=== PATIENT | female | born 1930 | race Caucasian/White ===

== ENCOUNTER → 2016-12-21 | Outpatient (CLI) | payer MEDICARE, OTHER ==
[~2016-12-21] MED LIST: ASPI325T5 PO; CENTTAB PO; LISIPOW PO; METO12TA PO; OSCAL PO; SIMV40TA2 PO; TRIPOIN TOP; ULTR50TA PO; VITAMIN D PO; [UNRECOGNIZED DRUG - REMARK]
== END ==
LOC: M LRY 10:47
PROVIDERS: ATTEND Physician Assistant
DX: I50.32 Chronic diastolic (congestive) heart failure (principal); E78.00 Pure hypercholesterolemia, unspecified

== ENCOUNTER → 2018-01-27 | Outpatient (REF) | payer MEDICARE, OTHER ==
[2018-01-27 17:12] LABS: HEMATOCRIT 44.6 % (36.0-47.0); HEMOGLOBIN 14.6 g/dl (12.0-15.5); MEAN CORPUSCULAR HEMOGLOBIN 30.4 pg (27.0-33.0); MEAN CORPUSCULAR HGB CONC 32.7 g/dl (32.0-36.5); MEAN CORPUSCULAR VOLUME 92.7 fl (80.0-96.0); PLATELET COUNT, AUTOMATED 227 10^3/uL (150-450); RED BLOOD COUNT 4.81 10^6/uL (4.00-5.40); RED CELL DISTRIBUTION WIDTH 13.5 % (11.5-14.5); WHITE BLOOD COUNT 6.9 10^3/uL (4.0-10.0)
[2018-01-27 17:31] LABS: ALBUMIN/GLOBULIN RATIO 1.05 (1.00-1.93); ALKALINE PHOSPHATASE 88 U/L (45-117); ALT/SGPT 23 U/L (12-78); ANION GAP 8 MEQ/L (8-16); AST/SGOT 22 U/L (7-37); BILIRUBIN,TOTAL 0.5 MG/DL (0.2-1.0); BLOOD UREA NITROGEN 10 MG/DL (7-18); CALCIUM LEVEL 10.5 MG/DL (8.8-10.2); CARBON DIOXIDE LEVEL 29 MEQ/L (21-32); CHLORIDE LEVEL 106 MEQ/L (98-107); CREATININE FOR GFR 0.92 MG/DL (0.55-1.30); GLOMERULAR FILTRATION RATE > 60.0 (>32); GLUCOSE, FASTING 106 MG/DL (70-100); POTASSIUM SERUM 4.3 MEQ/L (3.5-5.1); SODIUM LEVEL 143 MEQ/L (136-145); TOTAL PROTEIN 7.8 GM/DL (6.4-8.2)
== END ==
LOC: M SFHCLERA 10:47
DX: I10 Essential (primary) hypertension (principal)
CPT/HCPCS: 80053

== ENCOUNTER → 2018-07-11 | Outpatient (REF) | payer MEDICARE, OTHER ==
[2018-07-11 11:33] LABS: ALKALINE PHOSPHATASE 84 U/L (45-117); ALT/SGPT 21 U/L (12-78); ANION GAP 7 MEQ/L (8-16); AST/SGOT 18 U/L (7-37); BILIRUBIN,TOTAL 0.5 MG/DL (0.2-1.0); BLOOD UREA NITROGEN 14 MG/DL (7-18); CALCIUM LEVEL 9.5 MG/DL (8.8-10.2); CARBON DIOXIDE LEVEL 29 MEQ/L (21-32); CHLORIDE LEVEL 105 MEQ/L (98-107); CHOLESTEROL LEVEL 155 MG/DL (<200); CREATININE FOR GFR 0.89 MG/DL (0.55-1.30); GLOMERULAR FILTRATION RATE > 60.0 (>32); GLUCOSE, FASTING 104 MG/DL (70-100); HDL CHOLESTEROL 74 MG/DL (>40); POTASSIUM SERUM 3.9 MEQ/L (3.5-5.1); SODIUM LEVEL 141 MEQ/L (136-145); TRIGLYCERIDES LEVEL 92 MG/DL (<150)
[2018-07-11 11:34] LABS: ALBUMIN 3.7 GM/DL (3.2-5.2); ALBUMIN/GLOBULIN RATIO 1.09 (1.00-1.93); CHOLESTEROL RISK RATIO 2.094 (<5); LDL CHOLESTEROL 63 MG/DL (<100); NON-HDL-C 81 MG/DL; TOTAL PROTEIN 7.1 GM/DL (6.4-8.2)
== END ==
LOC: M SFHCLERA 08:46
DX: E78.2 Mixed hyperlipidemia (principal); E55.9 Vitamin D deficiency, unspecified
CPT/HCPCS: 80053

== ENCOUNTER → 2019-07-06 | Outpatient (REF) | payer MEDICARE, OTHER ==
[~2019-07-06] MED LIST changes: +METO-346 PO; -METO12TA PO
[2019-07-06 11:43] LABS: BASO # 0.1 10^3/uL (0.0-0.2); BASO % 0.7 % (0.0-1.0); EOS # 0.1 10^3/uL (0.0-0.5); EOS % 1.8 % (0.0-3.0); HEMATOCRIT 41.8 % (36.0-47.0); HEMOGLOBIN 13.7 g/dl (12.0-15.5); LYMPH # 1.5 10^3/uL (1.5-5.0); LYMPH % 21.9 % (24.0-44.0); MEAN CORPUSCULAR HEMOGLOBIN 30.8 pg (27.0-33.0); MEAN CORPUSCULAR HGB CONC 32.8 g/dl (32.0-36.5); MEAN CORPUSCULAR VOLUME 93.9 fl (80.0-96.0); MONO # 0.5 10^3/uL (0.0-0.8); MONO % 6.4 % (0.0-5.0); NEUTROPHILS # 4.8 10^3/uL (1.5-8.5); NEUTROPHILS % 68.5 % (36.0-66.0); PLATELET COUNT, AUTOMATED 214 10^3/uL (150-450); RED BLOOD COUNT 4.45 10^6/uL (4.00-5.40)
[2019-07-06 11:55] LABS: ALBUMIN 3.7 GM/DL (3.2-5.2); ALT/SGPT 21 U/L (12-78); BILIRUBIN,TOTAL 0.5 MG/DL (0.2-1.0); BLOOD UREA NITROGEN 14 MG/DL (7-18); CALCIUM LEVEL 9.6 MG/DL (8.8-10.2); CARBON DIOXIDE LEVEL 30 MEQ/L (21-32); CHLORIDE LEVEL 106 MEQ/L (98-107); CHOLESTEROL LEVEL 154 MG/DL (<200); CHOLESTEROL RISK RATIO 2.026 (<5); CREATININE FOR GFR 0.93 MG/DL (0.55-1.30); GLOMERULAR FILTRATION RATE > 60.0 (>32); GLUCOSE, FASTING 102 MG/DL (70-100); HDL CHOLESTEROL 76 MG/DL (>40); LDL CHOLESTEROL 57 MG/DL (<100); NON-HDL-C 78 MG/DL; POTASSIUM SERUM 4.3 MEQ/L (3.5-5.1); SODIUM LEVEL 141 MEQ/L (136-145); TOTAL PROTEIN 7.4 GM/DL (6.4-8.2); TRIGLYCERIDES LEVEL 107 MG/DL (<150)
== END ==
LOC: M SFHCLERA 08:11
PROVIDERS: ATTEND Nurse Practitioner Family
DX: I10 Essential (primary) hypertension (principal); E78.2 Mixed hyperlipidemia; Z12.11 Encounter for screening for malignant neoplasm of colon
CPT/HCPCS: 80053; 80061; 85025; G0328

== ENCOUNTER 2020-11-04 10:14 | Inpatient (IN) | payer MEDICARE, OTHER ==
[~2020-11-04] VITALS: Ht 154.9 cm; Wt 62.1 kg
[2020-11-04] MEDS ORDERED: NS 500 ML IV ONE (10:45)
[2020-11-04] MEDS ORDERED: ONDANSETRON 4MG/2ML VIAL As Ordered ONE (10:56)
[2020-11-04] MEDS ORDERED: ONDANSETRON 4MG/2ML VIAL IV ONE (11:00)
--- NOTE | 2020-11-04 11:02 | REP ---
INDICATION: CVA - Nursing interventions must not delay CT. COMPARISON: No comparison brain imaging.. TECHNIQUE: Helical scanning is acquired. 5 mm axial images were reformatted. Coronal MPR images were generated. FINDINGS: Digital preliminary ultrasound manager radiograph is unremarkable. Bone window settings demonstrate intact bony calvarium. Vascular calcification is noted in the distal vertebral and distal internal carotid arteries bilaterally. The visualized paranasal sinuses are clear. No intraorbital abnormality is seen. On soft tissue window settings, there is moderate generalized volume loss. There are small vessel atherosclerotic changes in the periventricular and subcortical white matter bilaterally. There is evidence of a lacunar infarct in the left frontal lobe periventricular white matter which appears old. There is no evidence of intracranial hemorrhage. No definite acute infarct is seen. No mass, extra-axial fluid collection, or midline shift is observed. IMPRESSION: Generalized volume loss, vascular calcification, small vessel changes. Old appearing lacunar infarct periventricular white matter left frontal lobe. No definite acute infarction. No other evidence of acute intracranial abnormality.. <Electronically signed by Mike Chua > 11/04/20 [id number]
--- NOTE | 2020-11-04 11:18 | REP ---
INDICATION: CVA. COMPARISON: 01/01/2013 TECHNIQUE: AP seated chest FINDINGS: The sternotomy wires and surgical clips noted within the mediastinum. Lung burton are well inflated there is a calcified granuloma in the right lateral base. Underlying interstitial fibrotic changes are seen. Heart size not grossly enlarged. However some venous hypertension is seen without definite interstitial edema. Some blunting left CP angle is present that could be chronic fibrotic change versus a small amount of pleural fluid or atelectasis. No dense consolidation. The aorta is calcified at the arch and tortuous without gross aneurysm. No abnormal widening of the mediastinum. The bones show degenerative changes in the spine and shoulders. No free air under the diaphragm. IMPRESSION: Sternotomy wires and clips from prior CABG. There is pulmonary venous hypertension without pulmonary edema. Some underlying interstitial fibrotic change without acute infiltrate. Blunting left CP angle could be scar, pleural thickening/effusion or atelectasis. <Electronically signed by Tao Day > 11/04/20 [id number]
[2020-11-04 11:50] LABS: BASO % 0.6 % (0.0-1.0); EOS # 0.1 10^3/uL (0.0-0.5); EOS % 0.7 % (0.0-3.0); HEMATOCRIT 36.7 % (36.0-47.0); HEMOGLOBIN 11.9 g/dl (12.0-15.5); LYMPH # 0.8 10^3/uL (1.5-5.0); LYMPH % 10.9 % (24.0-44.0); MEAN CORPUSCULAR HGB CONC 32.4 g/dl (32.0-36.5); MEAN CORPUSCULAR VOLUME 92.4 fl (80.0-96.0); MONO # 0.3 10^3/uL (0.0-0.8); MONO % 4.2 % (2.0-8.0); NEUTROPHILS # 5.8 10^3/uL (1.5-8.5); NEUTROPHILS % 82.9 % (36.0-66.0); PLATELET COUNT, AUTOMATED 195 10^3/uL (150-450); RED BLOOD COUNT 3.97 10^6/uL (4.00-5.40)
[2020-11-04 12:11] LABS: ALBUMIN 3.5 GM/DL (3.2-5.2); BILIRUBIN,DIRECT 0.1 MG/DL (0.0-0.2); BILIRUBIN,TOTAL 0.3 MG/DL (0.2-1.0); TOTAL PROTEIN 6.8 GM/DL (6.4-8.2)
[2020-11-04 12:17] LABS: FREE T4 0.94 NG/DL (0.76-1.46); THYROID STIMULATING HORMONE 1.71 uIU/ML (0.358-3.740)
[2020-11-04] MEDS ORDERED: OS-CTAB PO (12:29)
[2020-11-04] MEDS ORDERED: LISI20TA33 PO (12:29)
[2020-11-04] MEDS ORDERED: VITMTA PO (12:29)
[2020-11-04] MEDS ORDERED: SIMV40TA20 PO (12:29)
[2020-11-04] MEDS ORDERED: METO1TAB87 PO (12:29)
[2020-11-04 13:01] LABS: INR 0.97; PROTHROMBIN TIME 13.1 SECONDS (12.5-14.3)
[2020-11-04 13:02] LABS: PARTIAL THROMBOPLASTIN TIME 27.4 SECONDS (24.2-38.5)
[2020-11-04] MEDS ORDERED: ASPIRIN 325 MG TAB PO ONE (13:15)
[2020-11-04] MEDS ORDERED: ASPI325T49 PO (14:10)
--- OUTSIDE RECORDS SUMMARY | 2020-11-04 15:12 | CCD ---
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 Name Role Phone Vishnu Yeni Unavailable PROBLEMS Type Condition ICD9-CM Code TOE74-SO Code Onset Dates Condition S tatus SNOMED Code Notes Problem Vitamin D deficiency, unspecified E55.9 Active 95818942 Problem History of malignant neoplasm of large intestine Z 85.038 Active 457198706 Problem CAD (coronary artery disease) I25.10 Active 53 755519 Problem Mild depression F32.0 Active 139220409 Problem Essential hypertension I10 Active 56952251 Problem Mixed hyperlipidemia E78.2 Active 516756572 ALLERGIES Allergen (clinical drug ingredient) Drug/Non Drug Allergy do cumented on EMR Reaction Allergy Type Onset Date Status tape rash Non Drug Allergy Active meperidine Demerol([facility] Code:[address]-54) Confusion/halluc inations Drug Allergy Active Hydrocodone Bitartrate([facility] Code:[address]-46) c onfusion/hallucinations Drug Allergy Active ENCOUNTERS from 1930 to 2020-09-02 Encounter Location Date Provider Diagnosis [facility] [address] [place] [address], Yeni Mares IMMUNIZATIONS Vaccine Route Administration Date Status Influenza (18 yrs & older) Flublok IM Intramuscular Jul 04, 2019 Administered Influenza (18 yrs & older) Flublok IM Intramuscular Jul 04, 2018 Administered Influenza (High Dose 65 & up) IM Intramuscular Jun 29, 2014 A dministered Influenza (High Dose 65 & up) IM Intramuscular Jun 28, 2013 A dministered TDAP 0.5mL (Boostrix) IM Intramuscular Oct 13, 2012 Administe red Influenza (6mo & up) Fluzone IM Intramuscular Jul 02, 2015 Ad ministered SOCIAL HISTORY Tobacco Use: Social History Observation Description Date Details (start date - stop date) Never Smoker Sex Assigned At : Social History Observation Description Sex Assigned At Unknown Education: Question Answer Notes Level of Education: College Audit Question Answer Notes Total Score: 2 Interpretation: Alcohol Education Language: Question Answer Notes Languages spoken: Azeri Buddhism: Question Answer Notes Buddhism 13 Buddhist Sexual Hx: Question Answer Notes Had sex in the last 12 months (vaginal, oral, or anal)? No Have you ever had an STD? No Drug and Alcohol Question Answer Notes Total Score: 0 Interpretation: No problems reported Alcohol Screening: Question Answer Notes Did you have a drink containing alcohol in the past year? Ye s Points 2 Interpretation Negative How often did you have six or more drinks on one occas ion in the past year? Never (0 points) How many drinks did you have on a typica l day when you were drinking in the past year? 1 or 2 (0 points) How often did you have a drink containing alcohol in t he past year? Two to four times a month (2 points) Tobacco Use: Question Answer Notes Are you a: never smoker REASON FOR REFERRAL No Information VITAL SIGNS No information MEDICATIONS Medication SIG (Take, Route, Frequency, Duration) Notes Start Da te End Date Status Stool Softener 100 MG 1 capsule as needed Orally Once a day Active Centrum Silver 1 tab Orally daily Ac tive Aspirin 325 MG 1 tablet Orally Once a day Active Oscal 500/200 D-3 500-200 MG-UNIT 1 tablet with food Orally Once a da y Active Simvastatin 40 MG 1 tablet in the evening Orally Once a day for 90 da y(s) Active Lisinopril 20 mg 1 tablet Orally Once a day for 90 Active Metoprolol Tartrate 25 MG 1/2 tablet Orally QAM for 90 Active Vitamin D 400 u 3 tablets Orally Once a day Active PROCEDURES No Information RESULTS No Results REASON FOR VISIT refill MEDICAL (GENERAL) HISTORY Type Description Date Medical History CAD, ND (07/2006) inferior-posterior Medical History Hypertensive heart disease Medical History Hypertension Medical History Diastolic heart failure Medical History 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 Medical History iron deficiency anemia Medical History vitamin d deficiency Surgical History 5v CABG : FELIX to LAD, SVG t o marginal, seq SVG to LV branch, distal RCA and SVG to PDA 08/2006 Surgical History Cath - LVEF 60-65%, 3v dz, s ubtotal occlus SVG to RCA s/p drug eluting stent to RCA, patent FELIX to LAD & SVG to eliz branch of LCX 12/2008 Surgical History Ex lap w/ R hemicolectomy and anastamosi s 01/03/2013 Surgical History colonoscopy 02/06/2014 Hospitalization History [place] ([facility]) 2005 Hospitalization History childbirth x 6 Hospitalization History Small bowel obstruction ([facility]) 013 Hospitalization History Small bowel obstruction - co elizabeth cancer ([facility]) Dr. Crump 01/03/2013 Goals Section No Information Health Concerns No Information MEDICAL EQUIPMENT No Information MENTAL STATUS No Information FUNCTIONAL STATUS No Information ASSESSMENTS No Information PLAN OF TREATMENT Medication Medication Name Sig Start Date Stop Date Simvastatin 40 MG 1 tablet in the evening Orally Once a day for 90 day(s) Lisinopril 20 mg 1 tablet Orally Once a day for 90 Metoprolol Tartrate 25 MG 1/2 tablet Orally QAM for 90 Insurance Providers Payer Name Payer Address Payer Phone Insured Name Patient Relati onship to Insured Coverage Start Date Coverage End Date MEDICARE Part A and B [address] [facility] [id number] [phone] GROVER NAVARRETE [facility] INSURANCE [address] [facility] [address] GROVER [address]ARRETE self
--- OUTSIDE RECORDS SUMMARY | 2020-11-04 15:12 | CCD ---
Author Author [facility] Address Unknown Phone Unavailable Support Name Relationship Address Phone RETIRED Next Of Kin Unknown RE Next Of Kin Unknown Unavailable DAWNA NAVARRETE Next Of Kin [address] [place] [address] DAWNA NAVARRETE ECON [address] [place] [address] Unavailable Re-disclosure Warning The records that you are about to access may contain information from federally-assisted alcohol or drug abuse programs. If such information is present, then the following federally mandated warning applies: This information has been disclosed to you from records protected by federal confidentiality rules (42 CFR part 2). The federal rules prohibit you from making any further disclosure of this information unless further disclosure is expressly permitted by the written consent of the person to whom it pertains or as otherwise permitted by 42 CFR part 2. A general authorization for the release of medical or other information is NOT sufficient for this purpose. The Federal rules restrict any use of the information to criminally investigate or prosecute any alcohol or drug abuse patient.The records that you are about to access may contain highly sensitive health information, the redisclosure of which is protected by Article 27-F of the [facility] Public Health law. If you continue you may have access to information: Regarding HIV / AIDS; Provided by facilities licensed or operated by the [facility] Office of Mental Health; or Provided by the [facility] Office for People With Developmental Disabilities. If such information is present, then the following [facility] mandated warning applies: This information has been disclosed to you from confidential records which are protected by state law. State law prohibits you from making any further disclosure of this information without the specific written consent of the person to whom it pertains, or as otherwise permitted by law. Any unauthorized further disclosure in violation of state law may result in a fine or custodial sentence or both. A general authorization for the release of medical or other information is NOT sufficient authorization for further disc losure. Family History Family Member Name Family Member Gender Family Member Status Date o f Status Description Data Source(s) Unknown Female Problem [facility] ([facility]) Encounters Encounter Providers Location Date Indications Data Source(s ) [place] [address] [facility] [address] 08/30/2020 12:00:00 AM EST eCW1 ([facility]) [place] [address] [facility] [address] 08/02/2020 12:00:00 AM EST eCW1 ([facility]) [place] [address] [facility] [address] 01/04/2020 12:00:00 AM EDT eCW1 ([facility]) Immunizations Vaccine Date Status Description Data Source(s) COVID-19 VACCINE, MRNA-1273, LNP-S (MODERNA)/PF 10/28/2020 1 2:00:00 AM EST completed [facility] INFLUENZA VIRUS VACCINE QUADRIVAL SPLIT (65 YR UP)/PF 08/09/2020 12:00:00 AM EST completed [facility] Medications Medication Brand Name Start Date Product Form Dose Route Admi nistrative Instructions Pharmacy Instructions Status Indications Reaction Description Data Source(s) 100 mcg/0.5 mL 10/04/2020 12:00:00 AM EST suspension 0 INJECT BY [facility] (FIRST DOSE) INJECT BY [facility] (FIRST DOSE) SOLD: 10/04/2020 [facility] 20 mg 09/03/2020 12:00:00 AM EST tablet 90 TAKE ONE TABLET BY MOUTH EVERY DAY TAKE ONE TABLET BY MOUTH EVERY DAY SOLD: 09/03/2020 [facility] 40 mg 08/03/2020 12:00:00 AM EST tablet 90 TAKE ONE TABLET BY MOUTH EVERY EVENING TAKE ONE TABLET BY MOUTH EVERY EVENING SOLD: 10/28/2020 [facility] 40 mg 08/03/2020 12:00:00 AM EST tablet 90 TAKE ONE TABLET BY MOUTH EVERY EVENING TAKE ONE TABLET BY MOUTH EVERY EVENING SOLD: 08/03/2020 [facility] 25 mg 05/20/2020 12:00:00 AM EDT tablet 45 TAKE 1/2 TABLET BY MOUTH ONCE DAILY TAKE 1/2 TABLET BY MOUTH ONCE DAILY SOLD: 05/22/2020 [facility] 25 mg 05/20/2020 12:00:00 AM EDT tablet 45 TAKE 1/2 TABLET BY MOUTH ONCE DAILY TAKE 1/2 TABLET BY MOUTH ONCE DAILY SOLD: 08/18/2020 [facility] 40 mg 01/13/2020 12:00:00 AM EDT tablet 90 TAKE ONE TABLET BY MOUTH EVERY EVENING TAKE ONE TABLET BY MOUTH EVERY EVENING SOLD: 04/18/2020 [facility] 20 mg 01/13/2020 12:00:00 AM EDT tablet 90 TAKE ONE TABLET BY MOUTH EVERY DAY TAKE ONE TABLET BY MOUTH EVERY DAY SOLD: 01/16/2020 [facility] 40 mg 01/13/2020 12:00:00 AM EDT tablet 90 TAKE ONE TABLET BY MOUTH EVERY EVENING TAKE ONE TABLET BY MOUTH EVERY EVENING SOLD: 01/16/2020 [facility] 20 mg 01/13/2020 12:00:00 AM EDT tablet 90 TAKE ONE TABLET BY MOUTH EVERY DAY TAKE ONE TABLET BY MOUTH EVERY DAY SOLD: 04/18/2020 [facility] 25 mg 12/15/2019 12:00:00 AM EDT tablet 45 TAKE ONE-HALF TABLET BY MOUTH EVERY MORNING TAKE ONE-HALF TABLET BY MOUTH EVERY MORNING SOLD: 12/23/2019 [facility] 25 mg 12/15/2019 12:00:00 AM EDT tablet 45 TAKE ONE-HALF TABLET BY MOUTH EVERY MORNING TAKE ONE-HALF TABLET BY MOUTH EVERY MORNING SOLD: 03/23/2020 [facility] 25 mg 07/07/2019 12:00:00 AM EDT tablet 45 TAKE ONE-HALF TABLET BY MOUTH EVERY MORNING TAKE ONE-HALF TABLET BY MOUTH EVERY MORNING SOLD: 10/01/2019 [facility] 20 mg 07/07/2019 12:00:00 AM EDT tablet 90 TAKE ONE TABLET BY MOUTH EVERY DAY TAKE ONE TABLET BY MOUTH EVERY DAY SOLD: 10/10/2019 [facility] Simvastatin 40 MG Oral Tablet SIMVASTATIN 07/07/2019 12:00:00 AM EDT tablet 90 TAKE ONE TABLET BY MOUTH EVERY EVENING TAKE ONE TABLET BY MO UTH EVERY EVENING SOLD: 10/10/2019 [facility] Insurance Providers Payer name Policy type / Coverage type Policy ID Covered green party ID Covered green party's relationship to cobian Policy Cobian Plan Information MEDICARE [id number] SP [id number] [facility] [id number] ANSI-Commercial [id number] ANSI-Medicare Part B [id number] ANSI-Commercial [id number] ANSI-Medicare Part B [id number] ANSI-Medicare Part B [id number] ANSI-Commercial [id number] MEDICARE [id number] A ANSI-Medicare Part B [id number] ANSI-Commercial [id number] [address] [place] [employer] Medigap Part B [id number] Self [id number] Medicare (Part B) Medicare Primary [id number] Self [id number] Medicare (Part B) Medicare Primary Self [address] [employer] Medigap Part B Self Medicare Medicare Primary Self [id number] A [id number]
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
--- NOTE | 2020-11-04 15:52 | ECGEPIP ---
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 Order Number: [id number] Reading MD: Stuart Jaimes Measurements Intervals Ida Rate: 45 P: W[place]: QRS: -15 QRSD: 114 T: 18 QT: 538 QTc: 465 Interpretive Statements Junctional rhythm Incomplete left bundle branch block Minimal voltage criteria for LVH, may be normal variant Nonspecific T wave abnormality Delayed anterior R wave progression Comparison tracing not on file Electronically Signed on 11-04-2020 15:52:24 EST by Stuart Jaimes
--- NOTE | 2020-11-04 16:13 | REPVR ---
PROCEDURE INFORMATION: Exam: MR Angiogram Head Without Contrast, Arteries Exam date and time: 11/04/2020 1:06 PM Age: 89 years old Clinical indication: Weakness; Additional info: Numbness right hand, weakness TECHNIQUE: Imaging protocol: MR angiogram head without contrast. Exam focused on the arteries. 3D rendering (Not supervised by radiologist): MIP and/or 3D reconstructed images were created by the technologist. COMPARISON: 1. CT Head without contrast 11/04/2020 10:41 AM 2. MRI-Brain without Contrast 11/04/2020 3:04:42 PM FINDINGS: ANTERIOR CIRCULATION: Right internal carotid artery: Intracranial segment is patent with no significant stenosis. No aneurysm. Right middle cerebral artery: No occlusion or significant stenosis. No aneurysm. Right anterior cerebral artery: No occlusion or significant stenosis. No aneurysm. Left internal carotid artery: The left ICA appears mildly diffusely ectatic in the petrous and cavernous segments. No occlusion or significant stenosis. No saccular aneurysm. Left middle cerebral artery: No occlusion or significant stenosis. No aneurysm. Left anterior cerebral artery: No occlusion or significant stenosis. No aneurysm. POSTERIOR CIRCULATION: Right vertebral artery: Proximal cisternal right vertebral artery is occluded. There is retrograde filling of the distal right V4 segment. Left vertebral artery: No occlusion or significant stenosis. No aneurysm. Basilar artery: No occlusion or significant stenosis. No aneurysm. Right posterior cerebral artery: No occlusion or significant stenosis. No aneurysm. Left posterior cerebral artery: No occlusion or significant stenosis. No aneurysm. IMPRESSION: Occlusion of the right vertebral artery. Electronically signed by: Fariba Howard On 11/04/2020 16:13:48 PM
[2020-11-04] MEDS: CLOPIDOGREL 75 MG TAB PO SCH (16:21)
--- NOTE | 2020-11-04 16:32 | REPVR ---
PROCEDURE INFORMATION: Exam: MR Angiography Neck Without Contrast Exam date and time: 11/04/2020 1:06 PM Age: 89 years old Clinical indication: Weakness; Additional info: Numbness right hand, weakness TECHNIQUE: Imaging protocol: Magnetic resonance angiography of the neck without contrast. 3D rendering (Not supervised by radiologist): MIP and/or 3D reconstructed images were created by the technologist. COMPARISON: No relevant prior studies available. FINDINGS: Right common carotid artery: Based on the 3D [id number] acquisition, appears to be absence of flow in the right common carotid artery. Right internal carotid artery: Apparent string sign in the right carotid bulb which is likely collateralized by ECA, image 49 series 1401 (assuming no prior stent placement, presumably an area of atherosclerotic narrowing). Distal to this point, the proximal right ICA demonstrates luminal irregularity consistent with atherosclerosis (suggestion of small atherosclerotic plaque ulcerations). Right external carotid artery: No stenosis. No dissection or occlusion of the origin. Right vertebral artery: Attenuated degree right vertebral artery V2 segment flow related enhancement compared to the left. The V3 segment is occluded. Other: The brachiocephalic and subclavian arteries are poorly characterized on the 2 dimensional [id number] acquisition due to motion artifacts. Left common carotid artery: No stenosis. No dissection or occlusion. Left internal carotid artery: Some limitations assessing the carotid bifurcations due to motion artifact. Suspect moderate, approximate 50% left carotid bulb stenosis. Left external carotid artery: No stenosis. No dissection or occlusion of the origin. Left vertebral artery: The left vertebral artery is patent. IMPRESSION: 1. Apparent absence of flow in the right common carotid artery proximal to the bifurcation. 2. Severe or critical stenosis of the right carotid bulb. The right ECA probably provides collateral flow to the right ICA. 3. Attenuated appearance of the V2 segment cervical right vertebral artery suggesting diminished flow. 4. Occlusion of the right vertebral artery in the V3 segment. 5. Recommend CTA neck correlation. 6. Left carotid bulb stenosis is probably moderate in degree. REFERENCES: NASCET CRITERIA. The degree of internal carotid artery stenosis is based on NASCET criteria. Normal is no stenosis. Mild is less than 50% stenosis. Moderate is 50-69% stenosis. Severe is 70% to 99% stenosis. Total occlusion is no detectable patent lumen. Electronically signed by: Fariba Howard On 11/04/2020 16:32:52 PM
--- NOTE | 2020-11-04 16:39 | REPVR ---
PROCEDURE INFORMATION: Exam: MR Head Without Contrast Exam date and time: 11/04/2020 1:06 PM Age: 89 years old Clinical indication: Weakness, extremity; Bilateral; Additional info: Numbness right hand, weakness TECHNIQUE: Imaging protocol: MR of the head without contrast. COMPARISON: 1. CT Head without contrast 11/04/2020 10:41 AM 2. MRA BRAIN W/O CONTRAST 11/04/2020 3:04:42 PM 3. MRA CAROTID WITHOUT CONTRAST 11/04/2020 3:04:42 PM FINDINGS: Brain: There is a small focus of apparent true diffusion restriction in the inferior aspect of the right medulla near cervicomedullary junction, image 4 series 504. No correlative edema is identified at this time. No parenchymal hemorrhage. The brain demonstrates generalized volume loss. Patchy increased signal intensity in the deep white matter and carlos on the T2 weighted imaging most likely represents chronic small vessel ischemic change. There are chronic bilateral foley radiata lacunar infarcts. A small, chronic transcortical right occipital infarct. A focal chronic left cerebellar infarct. Cerebral ventricles: The ventricles are mildly enlarged in keeping with volume loss. Bones/joints: Unremarkable. Paranasal sinuses: Normal as visualized. No acute sinusitis. Mastoid air cells: Normal as visualized. No mastoid effusion. Orbital cavity: Unremarkable. Soft tissues: Unremarkable. Vertebral arteries: Relative loss of flow void for the distal cervical and cisternal segments of the right vertebral artery in keeping with occlusion. IMPRESSION: Suspicious for a focal, acute infarct in the right medulla. Electronically signed by: Fariba Howard On 11/04/2020 16:39:39 PM
--- NOTE | 2020-11-04 17:47 | REPVR ---
PROCEDURE INFORMATION: Exam: US Duplex Bilateral Extracranial Arteries Exam date and time: 11/04/2020 5:12 PM Age: 89 years old Clinical indication: Numbness / parasthesia; Bilateral; Additional info: TIA TECHNIQUE: Imaging protocol: Real-time Duplex ultrasound scan of the bilateral carotid and vertebral arteries combining salazar scale, color Doppler and spectral waveform analysis. Bilateral exam. COMPARISON: 1. CT Head without contrast 11/04/2020 10:41 AM 2. MRI-Brain without Contrast 11/04/2020 3:04:42 PM 3. MRA CAROTID WITHOUT CONTRAST 11/04/2020 3:04:42 PM FINDINGS: Right common carotid artery: Some systolic blood flow is visualized in the right common carotid artery. There is absence of diastolic blood flow. Right internal carotid artery: The right carotid bulb is occluded or nearly occluded. Proximal right ICA peak systolic velocity is 30 cm/s, mid right ICA peak systolic velocity is 37 cm/s, distal right ICA peak systolic velocity is 39 cm/s. Right ICA spectral broadening with decreased upstroke. Right ICA/CCA ratio: 1.5. Right external carotid artery: Diminished peak systolic velocity in the right ECA, 19 cm/s. Right vertebral artery: Unremarkable. Antegrade flow. Left common carotid artery: Unremarkable. No occlusion or stenosis. Waveforms are normal. Left internal carotid artery: Left ICA peak systolic velocities proximal to distal:127, 155, 161 cm/s. Left ICA/CCA ratio: 1.3. Left external carotid artery: No stenosis in the origin. Left vertebral artery: Unremarkable. Antegrade flow. IMPRESSION: 1. Absence of diastolic blood flow in the right common carotid artery. 2. The right carotid bulb is occluded or nearly occluded. Diminished blood flow velocity in the more distal portions of the cervical right ICA. 3. Diminished flow in the right external carotid artery. 4. Left ICA peak systolic velocity elevation consistent with 50-69% stenosis. 5. The visualized vertebral arteries demonstrate antegrade flow. REFERENCES: SRU CRITERIA. The degree of internal carotid artery stenosis is based on criteria defined by the Society of Radiologists in Ultrasound (SRU). Normal is no stenosis. Mild is less than 50% stenosis. Moderate is 50-69% stenosis. Severe is greater than 69% stenosis to near occlusion. Near occlusion is a markedly narrowed lumen. Total occlusion is no detectable patent lumen. Electronically signed by: Fariba Howard On 11/04/2020 17:47:40 PM
[2020-11-04 18:00] VITALS: BP 165/80
--- NOTE | 2020-11-04 19:14 | CR.PDOC ---
General Date of Consultation: Nov 04, 2020 Consultation REASON FOR CONSULTATION/CHIEF COMPLAINT: Concern for TIA versus stroke. HISTORY OF PRESENT ILLNESS: This is a very pleasant 89-year-old patient who has a less than 1 day history of right upper extremity weakness and dysarthria and was admitted for further workup of stroke. I have reviewed her MRA of the carotids and her carotid duplex. On the left, the patient has some mild to moder ate carotid stenosis with max PSV/EDV 161/34 and ICA/CCA ratio of 1.3.. On the right however, she has occlusion of the distal common carotid artery and the proximal carotid bulb with some low velocity antegrade flow in the right internal carotid artery, likely from collateralization from the external carotid artery. I suspect that thrombosis of her common carotid artery resulted in her symptoms today. With occlusion of the carotid artery, there is no indication for surgical intervention at this time. I would recommend continuing aspirin and statin daily for best medical management. If there is no contraindication, Plavix would also likely add benefit in this patient with significant history of coronary artery disease and mild to moderate left carotid stenosis with contralateral acute occlusion. ALLERGIES: Please see below. HOME MEDICATIONS: Please see below. PAST MEDICAL HISTORY: CAD, HTN, HLD, anemia, colon cancer history PAST SURGICAL HISTORY: Cardiac catheterization and CABG FAMILY HISTORY: Heart disease SOCIAL HISTORY: Patient denies tobacco alcohol or illicit drug use REVIEW OF SYSTEMS: CONSTITUTIONAL: Positive malaise, denies fevers chills HEENT: Denies vision or hearing changes CARDIOVASCULAR: Denies chest pain RESPIRATORY: Denies shortness of breath GENITOURINARY: Denies dysuria MUSCULOSKELETAL: Positive right arm weakness. GASTROINTESTINAL: Denies nausea vomiting diarrhea SKIN: Denies rashes or wounds NEUROLOGICAL: Positive dysarthria PSYCHIATRIC: Denies anxiety depression ENDOCRINE: Denies diabetes or thyroid disease HEMATOLOGIC/LYMPHATIC: Positive anemia ALLERGIC/IMMUNOLOGIC: Denies PHYSICAL EXAMINATION: VITAL SIGNS: Please see below. GENERAL APPEARANCE: Medically stable HEENT: Mild facial asymmetry. No bruit auscultated carotid arteries RESPIRATORY: Clear to auscultation CARDIOVASCULAR: Regular rate and rhythm ABDOMEN: Soft nontender EXTREMITIES: Slightly diminished motor and sensory function right upper extremity compared to left. Distal pulses intact NEUROLOGICAL: Speech improving. Right upper extremity weakness persists. PSYCHIATRIC: Pleasant and cooperative LABORATORY DATA: Please see below. 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 No surgical option with carotid occlusion. Best medical management recommended with continued aspirin and statin. If no contraindication, would consider adding Plavix with history of significant coronary artery disease as well as mild to moderate left ICA stenosis. 2. Follow-up in 6 months with repeat carotid duplex. We appreciate the opportunity to participate in the care of this patient. Vital Signs/I&O Vital Signs Date Time Temp Pulse Resp B/P (MAP) Pulse Ox O2 Delivery O2 Flow Rate FiO2 11/04/20 18:00 96.7 51 20 165/80 (108) 98 Room Air Laboratory Data Labs 24H Laboratory Tests 2 11/04/20 10:32: Immature Granulocyte % (Auto) 0.7, Neutrophils (%) (Auto) 82.9H, Lymphocytes (%) (Auto) 10.9L, Monocytes (%) (Auto) 4.2, Eosinophils (%) (Auto) 0.7, Basophils (%) (Auto) 0.6, Neutrophils # (Auto) 5.8, Lymphocytes # (Auto) 0.8L, Monocytes # (Auto) 0.3, Eosinophils # (Auto) 0.1, Basophils # (Auto) 0.0, Nucleated Red Blood Cells % (auto) 0.0, Total Bilirubin 0.3, Direct Bilirubin 0.1, Aspartate Amino Transf (AST/SGOT) 15, Alanine Aminotransferase (ALT/SGPT) 19, Alkaline Phosphatase 85, Total Protein 6.8, Albumin 3.5, Albumin/Globulin Ratio 1.1L 11/04/20 11:10: Thyroid Stimulating Hormone (TSH) 1.710, Free Thyroxine 0.94 11/04/20 11:37: POC Glucose (Misc Panel) 126H, POC Sodium (Misc Panel) 140, POC Potassium (Misc Panel) 4.0, POC Chloride (Misc Panel) 107, POC Total CO2 (Misc Panel) 25.0, POC Blood Urea Nitrogen (Misc Panel 17, POC Ionized Calcium (Misc Panel) 5.0, POC Creatinine (Misc Panel) 0.7, POC Hematocrit (Misc Panel) 32.0L 11/04/20 11:45: POC Troponin I (Misc) 0.00 11/04/20 12:34: Prothrombin Time 13.1, Prothromb Time International Ratio 0.97, Activated Partial Thromboplast Time 27.4 11/04/20 13:07: Urine Color YELLOW, Urine Appearance CLOUDYH, Urine pH 8.0, Urine Specific [place] 1.013, Urine Protein NEGATIVE, Urine Glucose (UA) NEGATIVE, Urine Ketone s NEGATIVE, Urine Blood NEGATIVE, Urine Nitrite NEGATIVE, Urine Bilirubin NEGATIVE, Urine Urobilinogen 0.2, Urine Leukocyte Esterase NEGATIVE, Urine WBC (Auto) 0, Urine RBC (Auto) 0, Urine Hyaline Casts (Auto) 0, Urine Bacteria (Auto) NEGATIVE, Urine Squamous Epithelial Cells 0, Urine Amorphous Sediment SMALLH, Urine Sperm (Auto) CBC/BMP Laboratory Tests 11/04/20 10:32 Microbiology Microbiology 11/04/20 Respiratory Virus Panel (PCR) ([facility]) - Final, Complete Allergies Coded Allergies: hydrocodone (Verified Allergy, Unknown, hallucinations , 11/04/20) meperidine (Verified Allergy, Unknown, anaphylaxis , 11/04/20) Home Medications Scheduled Aspirin (Aspirin EC) 325 Mg Tablet.dr, 325 MG PO DAILY, (Reported) Calcium Carbonate/Vitamin D3 (Os-[place] 500-Vit D3 600 [place]) 1 Each Tablet, 1 TAB PO BID, (Reported) Lisinopril (Lisinopril) 20 Mg Tablet, 20 MG PO DAILY, (Reported) Metoprolol Tartrate (Metoprolol Tartrate) 25 Mg Tablet, 12.5 MG PO DAILY, (Reported) Multivitamins (Thera M Plus Tablet) 1 Each Tablet, 1 TAB PO DAILY, (Reported) Simvastatin (Simvastatin) 40 Mg Tablet, 40 MG PO QHS, (Reported) MARC MAJANO MD Nov 04, 2020 19:14
[2020-11-04 20:00] VITALS: BP 143/63
[2020-11-04] MEDS: SIMVASTATIN 40 MG TAB PO SCH (20:23)
[2020-11-04] MEDS: ENOXAPARIN 40MG/0.4ML SYRINGE (J1650 PER 10MG) SC SCH (20:24)
[2020-11-05] VITALS: BP 129/58
[2020-11-05 04:00] VITALS: BP 156/65
[2020-11-05 05:21] LABS: HEMATOCRIT 34.9 % (36.0-47.0); HEMOGLOBIN 11.5 g/dl (12.0-15.5); MEAN CORPUSCULAR HEMOGLOBIN 29.7 pg (27.0-33.0); MEAN CORPUSCULAR VOLUME 90.2 fl (80.0-96.0); PLATELET COUNT, AUTOMATED 199 10^3/uL (150-450); RED BLOOD COUNT 3.87 10^6/uL (4.00-5.40); WHITE BLOOD COUNT 7.4 10^3/uL (4.0-10.0)
[2020-11-05 05:51] LABS: BLOOD UREA NITROGEN 19 MG/DL (7-18); CALCIUM LEVEL 8.3 MG/DL (8.8-10.2); CARBON DIOXIDE LEVEL 26 MEQ/L (21-32); CHLORIDE LEVEL 107 MEQ/L (98-107); CREATININE FOR GFR 0.72 MG/DL (0.55-1.30); GLOMERULAR FILTRATION RATE > 60.0 (>32); GLUCOSE, FASTING 101 MG/DL (70-100); POTASSIUM SERUM 3.7 MEQ/L (3.5-5.1); SODIUM LEVEL 140 MEQ/L (136-145)
[2020-11-05 08:00] VITALS: BP 174/73
[2020-11-05] MEDS: ASPIRIN ENTERIC 325 MG TAB PO SCH (08:31)
[2020-11-05] MEDS: CLOPIDOGREL 75 MG TAB PO SCH (08:31)
--- NOTE | 2020-11-05 08:39 | IPNPDOC ---
Date Seen The patient was seen on 11/05/20. Progress Note Patient seen and examined. She says she is doing better today. She is eating her breakfast with her right hand and does not have any trouble holding onto her utensils or feeding herself. She has not dropped her utensils or her chassis wirer. She is right-handed. She says she still has some tingling in her hand and fingers, but overall things have markedly improved. 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 Her sensory function to light and deep touch is intact. Aside from her tingling, she seems to have recovered her function. She says that her hand started to improve late last night and is gotten even better by this morning. Her speech is clear today. We again went over the plan for best medical management, no surgical intervention. 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 Right now, her kids are helping out, but she would like to get back. I told her as soon as it is safe, we would be able to discharge her, but it would be up to the hospitalist team for disposition. She is agreeable to this plan. We appreciate the opportunity to participate in the care of this patient. VS, I&O, 24H, [place] Vital Signs/I&O Vital Signs Date Time Temp Pulse Resp B/P (MAP) Pulse Ox O2 Delivery O2 Flow Rate FiO2 11/05/20 08:31 174/73 11/05/20 08:00 97.4 58 18 98 Room Air I&O- Last 24 Hours up to 6 AM 11/05/20 06:00 Intake Total 0 ml Output Total 250 ml Balance -250 ml Laboratory Data 24H LABS Laboratory Tests 2 11/04/20 10:32: Immature Granulocyte % (Auto) 0.7, Neutrophils (%) (Auto) 82.9H, Lymphocytes (%) (Auto) 10.9L, Monocytes (%) (Auto) 4.2, Eosinophils (%) (Auto) 0.7, Basophils (%) (Auto) 0.6, Neutrophils # (Auto) 5.8, Lymphocytes # (Auto) 0.8L, Monocytes # (Auto) 0.3, Eosinophils # (Auto) 0.1, Basophils # (Auto) 0.0, Nucleated Red Blood Cells % (auto) 0.0, Total Bilirubin 0.3, Direct Bilirubin 0.1, Aspartate Amino Transf (AST/SGOT) 15, Alanine Aminotransferase (ALT/SGPT) 19, Alkaline Phosphatase 85, Total Protein 6.8, Albumin 3.5, Albumin/Globulin Ratio 1.1L 11/04/20 11:10: Thyroid Stimulating Hormone (TSH) 1.710, Free Thyroxine 0.94 11/04/20 11:37: POC Glucose (Misc Panel) 126H, POC Sodium (Misc Panel) 140, POC Potassium (Misc Panel) 4.0, POC Chloride (Misc Panel) 107, POC Total CO2 (Misc Panel) 25.0, POC Blood Urea Nitrogen (Misc Panel 17, POC Ionized Calcium (Misc Panel) 5.0, POC Creatinine (Misc Panel) 0.7, POC Hematocrit (Misc Panel) 32.0L 11/04/20 11:45: POC Troponin I (Misc) 0.00 11/04/20 12:34: Prothrombin Time 13.1, Prothromb Time International Ratio 0.97, Activated Partial Thromboplast Time 27.4 11/04/20 13:07: Urine Color YELLOW, Urine Appearance CLOUDYH, Urine pH 8.0, Urine Specific [place] 1.013, Urine Protein NEGATIVE, Urine Glucose (UA) NEGATIVE, Urine Ketones NEGATIVE, Urine Blood NEGATIVE, Urine Nitrite NEGATIVE, Urine Bilirubin NEGATIVE, Urine Urobilinogen 0.2, Urine Leukocyte Esterase NEGATIVE, Urine WBC (Auto) 0, Urine RBC (Auto) 0, Urine Hyaline Casts (Auto) 0, Urine Bacteria (Auto) NEGATIVE, Urine Squamous Epithelial Cells 0, Urine Amorphous Sediment SMALLH, Urine Sperm (Auto) 11/05/20 05:00: Nucleated Red Blood Cells % (auto) 0.0, Anion Gap 7L, Glomerular Filtration Rate > 60.0, Calcium Level 8.3L CBC/BMP Laboratory Tests 11/04/20 10:32 11/05/20 05:00 Microbiology Microbiology 11/04/20 Respiratory Virus Panel (PCR) ([facility]) - Final, Complete MARC MAJANO MD Nov 05, 2020 08:39
[2020-11-05 11:47] VITALS: BP 160/74
[2020-11-05 16:00] VITALS: BP 150/70
--- NOTE | 2020-11-05 17:59 | IPNPDOC ---
Date Seen The patient was seen on 11/05/20. Progress Note SUBJECTIVE: The patient's HR dropped suddently to mid-30's and blood pressure systolic was in the 70's suddenly after physical therapy today. Troponin negative, ECG showed sinus bradycardia. Dr. Waddell, cardiology, was called and case discussed with him. He reviewed her medical cardiology history with me over the phone, as she used to be a patient of their office. She has had T-wave changes in the anterolateral leads for many years so this is not new on her ECG today, last echo on file for them many years ago showed preserved EF. She likely had centrally mediated vagal response due to the sudden onset of her vital sign changes, lightheadedness, dizziness and having had just walked with physical therapy. Echocardiogram was done today, results pending. The patient's heart rates has an bradycardic since admission; however staying in the 50s and not in the 30s. It rates remained in the high 40s to mid 50s during the rest of the day. She complained of right hand numbness today without sensory deficits noted on exam. She denied chest pain, increased shortness of breath, fevers, chills, nausea, vomiting. OBJECTIVE: PHYSICAL EXAMINATION (occurred right after vagal response): VITAL SIGNS: Please see below GENERAL: lethargic but improving slowly, AAOx3, resting in bed HEENT: No facial droop. Pupils equal and reactive to light. Extraocular movements intact. Tongue protrudes midline. NECK: Supple. No carotid bruits. LUNGS: CTAB, no W/r/R HEART: bradycardic with a 1/6 systolic ejection murmur, S1S2 + no gallops ABDOMEN: Soft and nontender with no masses. EXTREMITIES: No clubbing or cyanosis. Trace peripheral edema. Pulses are full in all four extremities. NEURO: generalized weakness with 4/5 in all extremities, no focal deficits. no sensory or motor deficits. CN 2-12 in tact. Gait not tested PSYCH: mood and affect appropriate. LABORATORY: Please see below IMAGING: Carotid US: 1. Absence of diastolic blood flow in the right common carotid artery. 2. The right carotid bulb is occluded or nearly occluded. Diminished blood flow velocity in the more distal portions of the cervical right ICA. 3. Diminished flow in the right external carotid artery. 4. Left ICA peak systolic velocity elevation consistent with 50-69% stenosis. 5. The visualized vertebral arteries demonstrate antegrade flow. MRI brain: Suspicious for a focal, acute infarct in the right medulla. 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 There is pulmonary venous hypertension without pulmonary edema. Some underlying interstitial fibrotic change without acute infiltrate. Blunting left CP angle could be scar, pleural thickening/effusion or atelectasis. 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 PLAN: Vagal response, centrally mediated -No LOC but + dizziness, lightheadedness, HR dropped to 30's, BP dropped to 70's systolic -S/p activity with PT, improved with rest -Per PT, checked VS prior to activity but VS remained stable then -Will check orthostatics in the AM -Holding ACEi, continue to hold BB Bradycardia, acute vs. chronic -On metoprolol 12.5 PO daily (odd dosing for one to be on) -Perhaps has been running low at home? -Currently in high 40's-50's asymptomatic -Discussed with cardiology, continue to monitor. Not candidate for PM per Dr. 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 Guy): c/w medical management with ASA, plavix and statin. She will need f/u in 6 months with vascular and repeat Carotid US at that time. -F/u echocardiogram -PT/OT HTN -BP 170's earlier today but stopped ACEi due to episode above -Was well controlled in office on 04/2020 -Monitor closely overnight. HLD -Statin DVT px -Enoxaparin DISPOSITION: PT/OT to continue. Hoping for home when able to be discharged. VS, I&O, 24H, Fishbone Vital Signs/I&O Vital Signs Date Time Temp Pulse Resp B/P (MAP) Pulse Ox O2 Delivery O2 Flow Rate FiO2 11/05/20 16:00 97.5 54 18 150/70 (96) 100 Room Air I&O- Last 24 Hours up to 6 AM 11/05/20 05:59 Intake Total 0 ml Output Total 250 ml Balance -250 ml Laboratory Data 24H LABS Laboratory Tests 2 11/05/20 05:00: Nucleated Red Blood Cells % (auto) 0.0, Anion Gap 7L, Glomerular Filtration Rate > 60.0, Calcium Level 8.3L 11/05/20 11:31: Troponin I < 0.02 CBC/BMP Laboratory Tests 11/05/20 05:00 Microbiology Microbiology 11/04/20 Respiratory Virus Panel (PCR) ([facility]) - Final, Complete Current Medications Current Medications Medications (Trade) Dose Ordered Sig/Malina Route PRN Reason Start Time Stop Time Status Last Admin Dose Admin Aspirin (Ecotrin) 325 mg DAILY PO 11/05/20 09:00 11/05/20 08:31 Clopidogrel Bisulfate (PLAVix) 75 mg DAILY PO 11/04/20 15:00 11/05/20 08:31 Enoxaparin Sodium (Lovenox) 40 mg DAILY@2100 SC 11/04/20 21:00 11/04/20 20:24 Home Med (Med Rec Complete!) ASDIRECTED XX 11/04/20 12:30 11/04/20 12:34 DC Lisinopril (Prinivil) 20 mg DAILY PO 11/04/20 09:00 11/05/20 11:24 DC 11/05/20 08:31 Simvastatin (Zocor) 40 mg QHS PO 11/04/20 21:00 11/04/20 20:23 Allergies Coded Allergies: hydrocodone (Verified Allergy, Unknown, hallucinations , 11/04/20) meperidine (Verified Allergy, Unknown, anaphylaxis , 11/04/20) Arlet Lentz MD Nov 05, 2020 17:58
[2020-11-05 20:00] VITALS: BP 149/69
[2020-11-05] MEDS: SIMVASTATIN 40 MG TAB PO SCH (21:03)
[2020-11-05] MEDS: ENOXAPARIN 40MG/0.4ML SYRINGE (J1650 PER 10MG) SC SCH (21:03)
[2020-11-06] VITALS (7 sets, daily range): BP systolic 110–170; BP diastolic 54–80
[2020-11-06 06:05] LABS: HEMATOCRIT 37.3 % (36.0-47.0); HEMOGLOBIN 11.9 g/dl (12.0-15.5); MEAN CORPUSCULAR HEMOGLOBIN 28.8 pg (27.0-33.0); MEAN CORPUSCULAR HGB CONC 31.9 g/dl (32.0-36.5); MEAN CORPUSCULAR VOLUME 90.3 fl (80.0-96.0); PLATELET COUNT, AUTOMATED 203 10^3/uL (150-450); RED BLOOD COUNT 4.13 10^6/uL (4.00-5.40)
[2020-11-06 06:27] LABS: BLOOD UREA NITROGEN 21 MG/DL (7-18); CALCIUM LEVEL 8.4 MG/DL (8.8-10.2); CARBON DIOXIDE LEVEL 23 MEQ/L (21-32); CHLORIDE LEVEL 111 MEQ/L (98-107); CREATININE FOR GFR 0.83 MG/DL (0.55-1.30); GLOMERULAR FILTRATION RATE > 60.0 (>32); GLUCOSE, FASTING 101 MG/DL (70-100); POTASSIUM SERUM 3.6 MEQ/L (3.5-5.1); SODIUM LEVEL 141 MEQ/L (136-145)
[2020-11-06] MEDS: ASPIRIN ENTERIC 325 MG TAB PO SCH (08:55)
[2020-11-06] MEDS: CLOPIDOGREL 75 MG TAB PO SCH (08:55)
--- NOTE | 2020-11-06 09:53 | ECHO ---
DATE OF PROCEDURE: 11/04/2020 Age: 89 Gender: Female Height: 154 cm Weight: 60 kg REFERRING PHYSICIAN: David Ortiz MD INDICATION: Transient ischemic attack (TIA). MEASUREMENTS: IVS 0.9 cm LV 4.6 cm LVPW 0.9 cm LA 3.7 cm Aorta 3.0 cm RV 3.2 cm IVC 1.3 cm DOPPLER MEASUREMENT Mitral E wave velocity 75 Mitral A wave 71 E prime septal 4.2 E prime lateral 6.6 FINDINGS: This study is of acceptable technical quality. The patient is in sinus bradycardia with heart rate in the 40s and wide QRS complex. Left ventricle is of normal size and normal systolic function, I estimate EF around 60%. No segmental wall motion abnormalities are appreciated. Right ventricle also is of normal size and systolic function. Both atria are severely enlarged. Aortic valve is tricuspid. There is minimal sclerosis, but overall the morphology is normal for the patients age. Mitral, tricuspid, and pulmonic valves appear normal. No pericardial effusion is noted. Inferior vena cava is of normal size. Aortic root is normal. Aortic arch was not well seen. There is apparent atherosclerosis in the abdominal aorta. Doppler interrogation of the aortic valve reveals no stenosis or insufficiency. There is trace mitral, tricuspid, and pulmonic insufficiency. Calculated pulmonary artery pressure is within normal limits. Mitral inflow pattern and tissue Doppler imaging of the mitral annulus revealed grade 2 diastolic dysfunction. Injection of agitated saline via peripheral vein reveals no evidence for [id number] shunt with and without Valsalva maneuver. CONCLUSIONS: 1. Study is of acceptable technical quality. Underlying sinus bradycardia with wide QRS complex. 2. Normal LV size with normal LV systolic function and grade 2 diastolic dysfunction. 3. Normal RV size. 4. Severe biatrial enlargement. 5. No significant valvular disease. 6. Apparent atherosclerosis in abdominal aorta. 7. Negative bubble study. MTDD
--- NOTE | 2020-11-06 16:19 | IPNPDOC ---
Date Seen The patient was seen on 11/06/20. Progress Note SUBJECTIVE: Dropped BP 170 to 110 systolic with nursing this AM. Bed to chair without symptoms per PT. Recommending ARU; however, will likely not be able to go until early next week. Denies chest pain, n/v/d, shortness of breath. OBJECTIVE: PHYSICAL EXAMINATION: VITAL SIGNS: Please see below GENERAL: AAOx3, resting in bedside chair HEENT: Pupils equal and reactive to light. Extraocular movements intact. Tongue protrudes midline. NECK: Supple. No carotid bruits. LUNGS: CTAB, no W/r/R HEART: S1S2 +, 1/6 systolic ejection murmur, S1S2 + no gallops ABDOMEN: Soft and nontender with no masses. EXTREMITIES: No clubbing or cyanosis. Trace peripheral edema. Pulses are full in all four extremities. NEURO: 4/5 in all extremities, no focal deficits. no sensory or motor deficits. CN 2-12 in tact. Gait not tested PSYCH: mood and affect appropriate. LABORATORY: Please see below IMAGING: Carotid US: 1. Absence of diastolic blood flow in the right common carotid artery. 2. The right carotid bulb is occluded or nearly occluded. Diminished blood flow velocity in the more distal portions of the cervical right ICA. 3. Diminished flow in the right external carotid artery. 4. Left ICA peak systolic velocity elevation consistent with 50-69% stenosis. 5. The visualized vertebral arteries demonstrate antegrade flow. MRI brain: Suspicious for a focal, acute infarct in the right medulla. 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 There is pulmonary venous hypertension without pulmonary edema. Some underlying interstitial fibrotic change without acute infiltrate. Blunting left CP angle could be scar, pleural thickening/effusion or atelectasis. 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 PLAN: Orthostatic hypotension likely 2/2 to autonomic dysfunction s/p CVA -Discussed with neuro -Slightly symptomatic this AM with nursing, participated from bed to chair with PT without symptoms -Per neuro, no additional treatments, supportive care, PT/OT. Cannot add midodrine or fludrocortisone due to intermittently HIGH blood pressures (high as 170's systolic) -Monitor closely Bradycardia, acute possibly 2/2 to BB at home -Improving slowly, currently 50-60's -Discussed with cardiology, continue to monitor. Not candidate for PM per Dr. 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 Guy): c/w medical management with ASA, plavix and statin. She will need f/u in 6 months with vascular and repeat Carotid US at at time. -F/u echocardiogram , results pending -PT/OT HTN -Stopped ACEi yesterday due to hypotensive episode -Currently 140-150's mmHg -Was well controlled in office on 04/2020 -Monitor closely HLD -Statin DVT px -Enoxaparin DISPOSITION: PT recommending ARU which she is agreeable to. Will likely not happen until after weekend. Updated patient's son Mik who would like telephone conference with family on 11/07/20 at 1 PM- will do. VS, I&O, 24H, Fishbone Vital Signs/I&O Vital Signs Date Time Temp Pulse Resp B/P (MAP) Pulse Ox O2 Delivery O2 Flow Rate FiO2 11/06/20 15:50 96.5 62 18 143/65 (91) 95 Room Air I&O- Last 24 Hours up to 6 AM 11/06/20 06:00 Intake Total 1080 ml Output Total 300 ml Balance 780 ml Laboratory Data 24H LABS Laboratory Tests 2 11/06/20 05:44: Nucleated Red Blood Cells % (auto) 0.0, Anion Gap 7L, Glomerular Filtration Rate > 60.0, Calcium Level 8.4L CBC/BMP Laboratory Tests 11/06/20 05:44 Microbiology Microbiology 11/04/20 Respiratory Virus Panel (PCR) (MANUEL) - Final, Complete Current Medications Current Medications Medications (Trade) Dose Ordered Sig/Malina Route PRN Reason Start Time Stop Time Status Last Admin Dose Admin Aspirin (Ecotrin) 325 mg DAILY PO 11/05/20 09:00 11/06/20 08:55 Clopidogrel Bisulfate (PLAVix) 75 mg DAILY PO 11/04/20 15:00 11/06/20 08:55 Enoxaparin Sodium (Lovenox) 40 mg DAILY@2100 SC 11/04/20 21:00 11/05/20 21:03 Home Med (Med Rec Complete!) ASDIRECTED XX 11/04/20 12:30 11/04/20 12:34 DC Lisinopril (Prinivil) 20 mg DAILY PO 11/04/20 09:00 11/05/20 11:24 DC 11/05/20 08:31 Simvastatin (Zocor) 40 mg QHS PO 11/04/20 21:00 11/05/20 21:03 Allergies Coded Allergies: hydrocodone (Verified Allergy, Unknown, hallucinations , 11/04/20) meperidine (Verified Allergy, Unknown, anaphylaxis , 11/04/20) Arlet Lentz MD Nov 06, 2020 16:19
[2020-11-06] MEDS: MIRALAX *UNIT DOSE* 17GM PACKET PO PRN (18:30)
[2020-11-06] MEDS: ENOXAPARIN 40MG/0.4ML SYRINGE (J1650 PER 10MG) SC SCH (21:37)
[2020-11-06] MEDS: SENNA 8.6 MG TAB (SENOKOT) PO SCH (21:37)
[2020-11-06] MEDS: SIMVASTATIN 40 MG TAB PO SCH (21:37)
[2020-11-06] MEDS: DOCUSATE SODIUM 100MG CAPSULE PO SCH (21:37)
[2020-11-07] VITALS (7 sets, daily range): BP systolic 136–182; BP diastolic 60–84
[2020-11-07 05:52] LABS: HEMATOCRIT 36.7 % (36.0-47.0); MEAN CORPUSCULAR HEMOGLOBIN 29.6 pg (27.0-33.0); MEAN CORPUSCULAR HGB CONC 32.7 g/dl (32.0-36.5); MEAN CORPUSCULAR VOLUME 90.4 fl (80.0-96.0); PLATELET COUNT, AUTOMATED 197 10^3/uL (150-450); RED BLOOD COUNT 4.06 10^6/uL (4.00-5.40); WHITE BLOOD COUNT 6.9 10^3/uL (4.0-10.0)
[2020-11-07 06:15] LABS: BLOOD UREA NITROGEN 22 MG/DL (7-18); CALCIUM LEVEL 8.8 MG/DL (8.8-10.2); CARBON DIOXIDE LEVEL 24 MEQ/L (21-32); CHLORIDE LEVEL 112 MEQ/L (98-107); CREATININE FOR GFR 0.82 MG/DL (0.55-1.30); GLOMERULAR FILTRATION RATE > 60.0 (>32); GLUCOSE, FASTING 95 MG/DL (70-100); POTASSIUM SERUM 3.6 MEQ/L (3.5-5.1); SODIUM LEVEL 142 MEQ/L (136-145)
[2020-11-07] MEDS: DOCUSATE SODIUM 100MG CAPSULE PO SCH ×2 (09:03→21:08)
[2020-11-07] MEDS: CLOPIDOGREL 75 MG TAB PO SCH (09:03)
[2020-11-07] MEDS: ASPIRIN ENTERIC 325 MG TAB PO SCH (09:03)
[2020-11-07] MEDS ORDERED: LACTULOSE 20 GM/30 ML SYRUP UD PO ONE (13:10)
--- NOTE | 2020-11-07 16:38 | IPNPDOC ---
Date Seen The patient was seen on 11/07/20. Progress Note SUBJECTIVE: BP dropped again on orthostatics with nursing but with PT, no drop in pressures or HR. Had episode where patient was lightheaded, HR dropped some but improved quickly. ARU likely after weekend. Family meeting with her son and daughters over phone, updated on current status, plan. Deferred to PFS for some questions. Denies chest pain, n/v/d, shortness of breath. OBJECTIVE: PHYSICAL EXAMINATION: VITAL SIGNS: Please see below GENERAL: AAOx3, resting in bedside chair, in good spirits HEENT: Pupils equal and reactive to light. Extraocular movements intact. Tongue protrudes midline. NECK: Supple. No carotid bruits. LUNGS: CTAB, no W/r/R HEART: S1S2 +, 1/6 systolic ejection murmur, S1S2 + no gallops ABDOMEN: Soft and nontender with no masses. EXTREMITIES: No clubbing or cyanosis. Trace peripheral edema. Pulses are full in all four extremities. NEURO: 5/5 in all extremities, no focal deficits. no sensory or motor deficits. CN 2-12 in tact. Gait not tested PSYCH: mood and affect appropriate. LABORATORY: Please see below IMAGING: Carotid US: 1. Absence of diastolic blood flow in the right common carotid artery. 2. The right carotid bulb is occluded or nearly occluded. Diminished blood flow velocity in the more distal portions of the cervical right ICA. 3. Diminished flow in the right external carotid artery. 4. Left ICA peak systolic velocity elevation consistent with 50-69% stenosis. 5. The visualized vertebral arteries demonstrate antegrade flow. MRI brain: Suspicious for a focal, acute infarct in the right medulla. 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 There is pulmonary venous hypertension without pulmonary edema. Some underlying interstitial fibrotic change without acute infiltrate. Blunting left CP angle could be scar, pleural thickening/effusion or atelectasi s. 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 PLAN: Orthostatic hypotension likely 2/2 to autonomic dysfunction s/p CVA -Positive again this AM -Discussed with neuro on 11/06/20 -Slightly symptomatic this AM with nursing, no symptoms and neg orthostats with PT -Per neuro, no additional treatments, supportive care, PT/OT. Cannot add midodrine or fludrocortisone due to intermittently HIGH blood pressures (high as 170's systolic) -Monitor closely Bradycardia, acute possibly 2/2 to BB at home -Improving slowly, currently 50-60's -Discussed with cardiology, continue to monitor. Not candidate for PM per Dr. 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 Guy): c/w medical management with ASA, plavix and statin. She will need f/u in 6 months with vascular and repeat Carotid US at that time. -F/u echocardiogram , results pending -PT/OT Ambulatory dysfunction s/p CVA -PT: "demonstrates signficiant improvements this session in regards to no significant drop in BP or symptom replication with supine>sit>stand transition and transfer to chair. Pt. does demonstrate lean to rt with ambulation requiring Santos to correct. Recommending continued rehab pending progression to optimize. -PT/OT -Likely ARU after weekend. HTN -Currently 130-160 mmHg -Was well controlled in office on 04/2020 -Stopped antihypertensive for fear of dropping those low BP's too low -Monitor closely HLD -Statin DVT px -Enoxaparin DISPOSITION: PT recommending ARU , likely go after weekend. Family meeting over phone occurred today with family and they were updated on plan, current status. Filled MOLST form out with patient, currently DNR/trial intubation. [facility] Vital Signs Date Time Temp Pulse Resp B/P (MAP) Pulse Ox O2 Delivery O2 Flow Rate FiO2 11/07/20 16:00 96.8 57 20 165/70 (101) 100 Room Air I&O- Last 24 Hours up to 6 AM 11/07/20 06:00 Intake Total 960 ml Output Total 600 ml Balance 360 ml Laboratory Data 24H LABS Laboratory Tests 2 11/07/20 05:27: Nucleated Red Blood Cells % (auto) 0.0, Anion Gap 6L, Glomerular Filtration Rate > 60.0, Calcium Level 8.8 CBC/BMP Laboratory Tests 11/07/20 05:27 Microbiology Microbiology 11/04/20 Respiratory Virus Panel (PCR) (MANUEL) - Final, Complete Current Medications Current Medications Medications (Trade) Dose Ordered Sig/Malina Route PRN Reason Start Time Stop Time Status Last Admin Dose Admin Aspirin (Ecotrin) 325 mg DAILY PO 11/05/20 09:00 11/07/20 09:03 Clopidogrel Bisulfate (PLAVix) 75 mg DAILY PO 11/04/20 15:00 11/07/20 09:03 Docusate Sodium (Colace) 100 mg BID PO 11/06/20 21:00 11/07/20 09:03 Enoxaparin Sodium (Lovenox) 40 mg DAILY@2100 SC 11/04/20 21:00 11/06/20 21:37 Home Med (Med Rec Complete!) ASDIRECTED XX 11/04/20 12:30 11/04/20 12:34 DC Lisinopril (Prinivil) 20 mg DAILY PO 11/04/20 09:00 11/05/20 11:24 DC 11/05/20 08:31 Polyethylene Glycol (Miralax) 1 pkt DAILYPRN PRN PO CONSTIPATION 11/06/20 17:50 11/06/20 18:30 Senna (Senokot) 2 tab QHS PO 11/06/20 21:00 11/06/20 21:37 Simvastatin (Zocor) 40 mg QHS PO 11/04/20 21:00 11/06/20 21:37 Allergies Coded Allergies: hydrocodone (Verified Allergy, Unknown, hallucinations , 11/04/20) meperidine (Verified Allergy, Unknown, anaphylaxis , 11/04/20) Arlet Lentz MD Nov 07, 2020 16:38
[2020-11-07] MEDS: SENNA 8.6 MG TAB (SENOKOT) PO SCH (21:08)
[2020-11-07] MEDS: SIMVASTATIN 40 MG TAB PO SCH (21:08)
[2020-11-07] MEDS: ENOXAPARIN 40MG/0.4ML SYRINGE (J1650 PER 10MG) SC SCH (21:09)
[2020-11-08] VITALS (7 sets, daily range): BP systolic 122–146; BP diastolic 58–82
--- NOTE | 2020-11-08 00:15 | ECGEPIP ---
[facility] Test Date: 2020-11-05 Pat Name: GROVER NAVARRETE Department: Room: [place] [address] Gender: Female [employer] Person: kvng : [id number] Requested By: Arlet Garcia Order Number: [id number] Reading MD: Siva Chester Measurements Intervals [place] Rate: 48 P: CT: QRS: -7 QRSD: 108 T: 5 QT: 506 QTc: 452 Interpretive Statements Sinus rhythm, bradycardic with First Degree AV Block Minimal voltage criteria for LVH, may be normal variant ( Christopher product ) Septal infarct , age undetermined ST & T wave abnormality, consider anterior ischemia(New) Last tracing on 11/04/20 at 11:01 Electronically Signed on 11-08-2020 0:15:27 EST by Siva Chester
[2020-11-08 07:45] LABS: HEMATOCRIT 37.6 % (36.0-47.0); HEMOGLOBIN 12.2 g/dl (12.0-15.5); MEAN CORPUSCULAR HEMOGLOBIN 29.3 pg (27.0-33.0); MEAN CORPUSCULAR HGB CONC 32.4 g/dl (32.0-36.5); MEAN CORPUSCULAR VOLUME 90.4 fl (80.0-96.0); PLATELET COUNT, AUTOMATED 204 10^3/uL (150-450); RED BLOOD COUNT 4.16 10^6/uL (4.00-5.40); WHITE BLOOD COUNT 7.7 10^3/uL (4.0-10.0)
[2020-11-08 08:11] LABS: BLOOD UREA NITROGEN 19 MG/DL (7-18); CALCIUM LEVEL 8.8 MG/DL (8.8-10.2); CARBON DIOXIDE LEVEL 26 MEQ/L (21-32); CHLORIDE LEVEL 110 MEQ/L (98-107); CREATININE FOR GFR 0.74 MG/DL (0.55-1.30); GLOMERULAR FILTRATION RATE > 60.0 (>32); GLUCOSE, FASTING 89 MG/DL (70-100); POTASSIUM SERUM 3.8 MEQ/L (3.5-5.1); SODIUM LEVEL 142 MEQ/L (136-145)
[2020-11-08] MEDS: CLOPIDOGREL 75 MG TAB PO SCH (09:16)
[2020-11-08] MEDS: ASPIRIN ENTERIC 325 MG TAB PO SCH (09:16)
[2020-11-08] MEDS: DOCUSATE SODIUM 100MG CAPSULE PO SCH ×2 (09:16→20:30)
[2020-11-08] MEDS: MIRALAX *UNIT DOSE* 17GM PACKET PO PRN (09:20)
--- NOTE | 2020-11-08 14:00 | IPNPDOC ---
Date Seen The patient was seen on 11/08/20. Progress Note SUBJECTIVE: No acute events overnight. Denies lightheadedness, dizziness, chest pain, n/v/d, shortness of breath. OBJECTIVE: PHYSICAL EXAMINATION: VITAL SIGNS: Please see below GENERAL: AAOx3, resting in bedside chair, in good spirits HEENT: Pupils equal and reactive to light. Extraocular movements intact. Tongue protrudes midline. NECK: Supple. No carotid bruits. LUNGS: CTAB, no W/r/R HEART: S1S2 +, 1/6 systolic ejection murmur, S1S2 + no gallops ABDOMEN: Soft and nontender with no masses. EXTREMITIES: No clubbing or cyanosis. Trace peripheral edema. Pulses are full in all four extremities. NEURO: 5/5 in all extremities, no focal deficits. no sensory or motor deficits. CN 2-12 in tact. Gait not tested PSYCH: mood and affect appropriate. LABORATORY: Please see below IMAGING: Echocardiogram: EF 60% Study is of acceptable technical quality. Underlying sinus bradycardia with wide QRS complex. Normal LV size with normal LV systolic function and grade 2 diastolic dy sfunction. Normal RV size. Severe biatrial enlargement. No significant valvular disease. Apparent atherosclerosis in abdominal aorta. Negative bubble study. Carotid US: 1. Absence of diastolic blood flow in the right common carotid artery. 2. The right carotid bulb is occluded or nearly occluded. Diminished blood flow velocity in the more distal portions of the cervical right ICA. 3. Diminished flow in the right external carotid artery. 4. Left ICA peak systolic velocity elevation consistent with 50-69% stenosis. 5. The visualized vertebral arteries demonstrate antegrade flow. MRI brain: Suspicious for a focal, acute infarct in the right medulla. 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 There is pulmonary venous h ypertension without pulmonary edema. Some underlying interstitial fibrotic change without acute infiltrate. Blunting left CP angle could be scar, pleural thickening/effusion or atelectasis. 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 PLAN: Orthostatic hypotension likely 2/2 to autonomic dysfunction s/p CVA -Positive 11/07/20 with episode of near syncope on commode. Overnight no events -Discussed with neuro on 11/06/20 -Asymptomatic this AM , no symptoms and neg orthostatics with PT -Per neuro, no additional treatments, supportive care, PT/OT. Cannot add midodrine or fludrocortisone due to intermittently HIGH blood pressures (high as 170's systolic) -Monitor closely Bradycardia, acute -Improving slowly, currently 50-60's -Discussed with cardiology, continue to monitor. Not candidate for PM per Dr. 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 Guy): c/w medical management with ASA, plavix and statin. She will need f/u in 6 months with vascular and repeat Carotid US at that time. -Echo above -lipid panel pending -PT/OT Ambulatory dysfunction s/p CVA -PT: "Patient's BP did not drop with transfers or supine>sit position. She completed a SPT from bed>chair with CGAx2 and RW, no LOB demonstrated. Plan to progress ambulation as tolerated. Patient would benefit from continued rehab at this time." -PT/OT -Likely ARU after weekend. HTN -Currently 130-160 mmHg -Stopped antihypertensive for fear of dropping those low BP's too low -Monitor closely HLD -Statin DVT px -Enoxaparin DISPOSITION: PT recommending ARU , likely go after weekend (unable to take the past two days). VS, I&O, 24H, Fishbone Vital Signs/I&O Vital Signs Date Time Temp Pulse Resp B/P (MAP) Pulse Ox O2 Delivery O2 Flow Rate FiO2 11/08/20 08:00 97.3 54 20 130/60 (83) 95 Room Air I&O- Last 24 Hours up to 6 AM 11/08/20 06:00 Intake Total 1020 ml Output Total 500 ml Balance 520 ml Laboratory Data 24H LABS Laboratory Tests 2 11/08/20 05:25: Nucleated Red Blood Cells % (auto) 0.0, Anion Gap 6L, Glomerular Filtration Rate > 60.0, Calcium Level 8.8 CBC/BMP Laboratory Tests 11/08/20 05:25 Microbiology Microbiology 11/04/20 Respiratory Virus Panel (PCR) (MANUEL) - Final, Complete Current Medications Current Medications Medications (Trade) Dose Ordered Sig/Malina Route PRN Reason Start Time Stop Time Status Last Admin Dose Admin Aspirin (Ecotrin) 325 mg DAILY PO 11/05/20 09:00 11/08/20 09:16 Clopidogrel Bisulfate (PLAVix) 75 mg DAILY PO 11/04/20 15:00 11/08/20 09:16 Docusate Sodium (Colace) 100 mg BID PO 11/06/20 21:00 11/08/20 09:16 Enoxaparin Sodium (Lovenox) 40 mg DAILY@2100 SC 11/04/20 21:00 11/07/20 21:09 Home Med (Med Rec Complete!) ASDIRECTED XX 11/04/20 12:30 11/04/20 12:34 DC Lisinopril (Prinivil) 20 mg DAILY PO 11/04/20 09:00 11/05/20 11:24 DC 11/05/20 08:31 Polyethylene Glycol (Miralax) 1 pkt DAILYPRN PRN PO CONSTIPATION 11/06/20 17:50 11/08/20 09:20 Senna (Senokot) 2 tab QHS PO 11/06/20 21:00 11/07/20 21:08 Simvastatin (Zocor) 40 mg QHS PO 11/04/20 21:00 11/07/20 21:08 Allergies Coded Allergies: hydrocodone (Verified Allergy, Unknown, hallucinations , 11/04/20) meperidine (Verified Allergy, Unknown, anaphylaxis , 11/04/20) Arlet Lentz MD Nov 08, 2020 14:00
[2020-11-08 14:24] LABS: CHOLESTEROL LEVEL 144 MG/DL (<200); HDL CHOLESTEROL 64 MG/DL (>40); LDL CHOLESTEROL 57 MG/DL (<100); NON-HDL-C 80 MG/DL; TRIGLYCERIDES LEVEL 113 MG/DL (<150)
[2020-11-08] MEDS: SIMVASTATIN 40 MG TAB PO SCH (20:30)
[2020-11-08] MEDS: ENOXAPARIN 40MG/0.4ML SYRINGE (J1650 PER 10MG) SC SCH (20:30)
[2020-11-08] MEDS: SENNA 8.6 MG TAB (SENOKOT) PO SCH (20:30)
[2020-11-09 06:00] VITALS: BP 184/68
[2020-11-09 06:37] LABS: HEMATOCRIT 36.1 % (36.0-47.0); HEMOGLOBIN 12.1 g/dl (12.0-15.5); MEAN CORPUSCULAR HEMOGLOBIN 30.2 pg (27.0-33.0); MEAN CORPUSCULAR HGB CONC 33.5 g/dl (32.0-36.5); PLATELET COUNT, AUTOMATED 191 10^3/uL (150-450); RED BLOOD COUNT 4.01 10^6/uL (4.00-5.40); WHITE BLOOD COUNT 7.5 10^3/uL (4.0-10.0)
[2020-11-09 07:06] LABS: BLOOD UREA NITROGEN 22 MG/DL (7-18); CALCIUM LEVEL 8.5 MG/DL (8.8-10.2); CARBON DIOXIDE LEVEL 22 MEQ/L (21-32); CHLORIDE LEVEL 111 MEQ/L (98-107); CREATININE FOR GFR 0.72 MG/DL (0.55-1.30); GLOMERULAR FILTRATION RATE > 60.0 (>32); GLUCOSE, FASTING 93 MG/DL (70-100); POTASSIUM SERUM 4.2 MEQ/L (3.5-5.1); SODIUM LEVEL 141 MEQ/L (136-145)
[2020-11-09] MEDS: ASPIRIN ENTERIC 325 MG TAB PO SCH (08:18)
[2020-11-09] MEDS: CLOPIDOGREL 75 MG TAB PO SCH (08:18)
[2020-11-09] MEDS: DOCUSATE SODIUM 100MG CAPSULE PO SCH ×2 (08:19→20:02)
[2020-11-09] MEDS: MIRALAX *UNIT DOSE* 17GM PACKET PO PRN (08:19)
[2020-11-09] MEDS: MIRALAX *UNIT DOSE* 17GM PACKET PO SCH (09:00)
[2020-11-09] MEDS ORDERED: LACTULOSE 20 GM/30 ML SYRUP UD PO ONE (10:00)
[2020-11-09 14:26] VITALS: BP 152/62
--- NOTE | 2020-11-09 15:03 | IPNPDOC ---
Date Seen The patient was seen on 11/09/20. Progress Note SUBJECTIVE: No acute events overnight. NEg orthostatics on 11/08/20. Denies lightheadedness, dizziness, chest pain, n/v/d, shortness of breath. OBJECTIVE: PHYSICAL EXAMINATION: VITAL SIGNS: Please see below GENERAL: AAOx3, resting in bedside chair, in good spirits HEENT: Pupils equal and reactive to light. Extraocular movements intact. Tongue protrudes midline. NECK: Supple. No carotid bruits. LUNGS: CTAB, no W/r/R HEART: S1S2 +, 1/6 systolic ejection murmur, S1S2 + no gallops ABDOMEN: Soft and nontender with no masses. EXTREMITIES: No clubbing or cyanosis. Trace peripheral edema. Pulses are full in all four extremities. NEURO: 5/5 in all extremities, no focal deficits. no sensory or motor deficits. CN 2-12 in tact. PSYCH: mood and affect appropriate. LABORATORY: Please see below IMAGING: Echocardiogram: EF 60% Study is of acceptable technical quality. Underlying sinus bradycardia with wide QRS complex. Normal LV size with normal LV systolic function and grade 2 diastolic dysfunction. Normal RV size. Severe biatrial enlargement. No significant valvular disease. Apparent atherosclerosis in abdominal aorta. Negative bubble study. Carotid US: 1. Absence of diastolic blood flow in the right common carotid artery. 2. The right carotid bulb is occluded or nearly occluded. Diminished blood flow velocity in the more distal portions of the cervical right ICA. 3. Diminished flow in the right external carotid artery. 4. Left ICA peak systolic velocity elevation consistent with 50-69% stenosis. 5. The visualized vertebral arteries demonstrate antegrade flow. MRI brain: Suspicious for a focal, acute infarct in the right medulla. 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 There is pulmonary venous hypertension without pulmonary edema. Some underlying interstitial fibrotic change without acute infiltrate. Blunting left CP angle could be scar, pleural thickening/effusion or atelectas is. 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 PLAN: Orthostatic hypotension likely 2/2 to autonomic dysfunction s/p CVA -NEg on 11/08/20 -Discussed with neuro on 11/06/20 -Asymptomatic this AM , no symptoms and neg orthostatics on last PT exam -Per neuro, no additional treatments, supportive care, PT/OT. Cannot add midodrine or fludrocortisone due to intermittently HIGH blood pressures (high as 170's systolic) -Monitor closely Bradycardia, acute -HR currently 50-60's -Discussed with cardiology, continue to monitor. Not candidate for PM per Dr. 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 Guy): c/w medical management with ASA, plavix and statin. She will need f/u in 6 months with vascular and repeat Carotid US at that time. -Echo above -lipid panel wnl -PT/OT Ambulatory dysfunction s/p CVA -PT: "Patient's BP did not drop with transfers or supine>sit position. She completed a SPT from bed>chair with CGAx2 and RW, no LOB demonstrated. Plan to p rogress ambulation as tolerated. Patient would benefit from continued rehab at this time." -PT/OT -Likely ARU after weekend. HTN -Has been stable -Stopped antihypertensive for fear of dropping those low BP's too low -Monitor closely HLD -Statin DVT px -Enoxaparin DISPOSITION: PT recommending ARU , likely go after weekend (unable to take two days prior to weekend). VS, I&O, 24H, Fishbone Vital Signs/I&O Vital Signs Date Time Temp Pulse Resp B/P (MAP) Pulse Ox O2 Delivery O2 Flow Rate FiO2 11/09/20 14:26 97.9 61 20 152/62 (92) 98 Room Air I&O- Last 24 Hours up to 6 AM 11/09/20 05:59 Intake Total 1200 ml Output Total 750 ml Balance 450 ml Laboratory Data 24H LABS Laboratory Tests 2 11/09/20 06:26: Nucleated Red Blood Cells % (auto) 0.4H, Anion Gap 8, Glomerular Filtration Rate > 60.0, Calcium Level 8.5L CBC/BMP Laboratory Tests 11/09/20 06:26 Microbiology Microbiology 11/04/20 Respiratory Virus Panel (PCR) (MANUEL) - Final, Complete Current Medications Current Medications Medications (Trade) Dose Ordered Sig/Malina Route PRN Reason Start Time Stop Time Status Last Admin Dose Admin Aspirin (Ecotrin) 325 mg DAILY PO 11/05/20 09:00 11/09/20 08:18 Clopidogrel Bisulfate (PLAVix) 75 mg DAILY PO 11/04/20 15:00 11/09/20 08:18 Docusate Sodium (Colace) 100 mg BID PO 11/06/20 21:00 11/09/20 08:19 Enoxaparin Sodium (Lovenox) 40 mg DAILY@2100 SC 11/04/20 21:00 11/08/20 20:30 Home Med (Med Rec Complete!) ASDIRECTED XX 11/04/20 12:30 11/04/20 12:34 DC Lisinopril (Prinivil) 20 mg DAILY PO 11/04/20 09:00 11/05/20 11:24 DC 11/05/20 08:31 Polyethylene Glycol (Miralax) 1 pkt DAILY PO 11/09/20 09:00 Polyethylene Glycol (Miralax) 1 pkt DAILYPRN PRN PO CONSTIPATION 11/06/20 17:50 11/09/20 09:33 DC 11/09/20 08:19 Senna (Senokot) 2 tab QHS PO 11/06/20 21:00 11/08/20 20:30 Simvastatin (Zocor) 40 mg QHS PO 11/04/20 21:00 11/08/20 20:30 Allergies Coded Allergies: hydrocodone (Verified Allergy, Unknown, hallucinations , 11/04/20) meperidine (Verified Allergy, Unknown, anaphylaxis , 11/04/20) Arlet Lentz MD Nov 09, 2020 15:03
[2020-11-09] MEDS: SIMVASTATIN 40 MG TAB PO SCH (20:02)
[2020-11-09] MEDS: SENNA 8.6 MG TAB (SENOKOT) PO SCH (20:03)
[2020-11-09] MEDS: ENOXAPARIN 40MG/0.4ML SYRINGE (J1650 PER 10MG) SC SCH (20:03)
[2020-11-09 22:00] VITALS: BP 160/62
[2020-11-10 06:00] VITALS: BP 177/73
[2020-11-10 06:28] LABS: HEMATOCRIT 36.4 % (36.0-47.0); HEMOGLOBIN 11.6 g/dl (12.0-15.5); MEAN CORPUSCULAR HEMOGLOBIN 28.9 pg (27.0-33.0); MEAN CORPUSCULAR HGB CONC 31.9 g/dl (32.0-36.5); MEAN CORPUSCULAR VOLUME 90.5 fl (80.0-96.0); PLATELET COUNT, AUTOMATED 195 10^3/uL (150-450); RED BLOOD COUNT 4.02 10^6/uL (4.00-5.40); WHITE BLOOD COUNT 6.9 10^3/uL (4.0-10.0)
[2020-11-10 06:47] LABS: BLOOD UREA NITROGEN 22 MG/DL (7-18); CALCIUM LEVEL 8.4 MG/DL (8.8-10.2); CARBON DIOXIDE LEVEL 25 MEQ/L (21-32); CHLORIDE LEVEL 110 MEQ/L (98-107); CREATININE FOR GFR 0.75 MG/DL (0.55-1.30); GLOMERULAR FILTRATION RATE > 60.0 (>32); GLUCOSE, FASTING 91 MG/DL (70-100); SODIUM LEVEL 140 MEQ/L (136-145)
[2020-11-10] MEDS: MIRALAX *UNIT DOSE* 17GM PACKET PO SCH (08:35)
[2020-11-10] MEDS: CLOPIDOGREL 75 MG TAB PO SCH (08:35)
[2020-11-10] MEDS: DOCUSATE SODIUM 100MG CAPSULE PO SCH ×2 (08:35→20:54)
[2020-11-10] MEDS: ASPIRIN ENTERIC 325 MG TAB PO SCH (08:35)
[2020-11-10] MEDS ORDERED: lisinopriL 5 MG TAB PO SCH (09:00)
[2020-11-10] MEDS: LACTULOSE 20 GM/30 ML SYRUP UD PO SCH (10:57)
[2020-11-10] MEDS ORDERED: FLEET OIL RETENTION ENEMA PR ONE (11:00)
--- NOTE | 2020-11-10 11:26 | IPNPDOC ---
Date Seen The patient was seen on 11/10/20. Progress Note SUBJECTIVE: BP uncontrolled b/n 150-190 mmHg, started low dose ACEi. Denies lightheadedness, dizziness, chest pain, n/v/d, shortness of breath. OBJECTIVE: PHYSICAL EXAMINATION: VITAL SIGNS: Please see below GENERAL: AAOx3, resting in bedside chair, in good spirits HEENT: Pupils equal and reactive to light. Extraocular movements intact. Tongue protrudes midline. NECK: Supple. No carotid bruits. LUNGS: CTAB, no W/r/R HEART: S1S2 +, 1/6 systolic ejection murmur, S1S2 + no gallops ABDOMEN: Soft and nontender with no masses. EXTREMITIES: No clubbing or cyanosis. Trace peripheral edema. Pulses are full in all four extremities. NEURO: 5/5 in all extremities, no focal deficits. no sensory or motor deficits. CN 2-12 in tact. PSYCH: mood and affect appropriate. LABORATORY: Please see below IMAGING: Echocardiogram: EF 60% Study is of acceptable technical quality. Underlying sinus bradycardia with wide QRS complex. Normal LV size with normal LV systolic function and grade 2 diastolic dysfunction. Normal RV size. Severe biatrial enlargement. No significant valvular disease. Apparent atherosclerosis in abdominal aorta. Negative bubble study. Carotid US: 1. Absence of diastolic blood flow in the right common carotid artery. 2. The right carotid bulb is occluded or nearly occluded. Diminished blood flow velocity in the more distal portions of the cervical right ICA. 3. Diminished flow in the right external carotid artery. 4. Left ICA peak systolic velocity elevation consistent with 50-69% stenosis. 5. The visualized vertebral arteries demonstrate antegrade flow. MRI brain: Suspicious for a focal, acute infarct in the right medulla. 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 There is pulmonary venous hypertension without pulmonary edema. Some underlying interstitial fibrotic change without acute infiltrate. Blunting left CP angle could be scar, pleural thickening/effusion or atelecta sis. 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 PLAN: Orthostatic hypotension likely 2/2 to autonomic dysfunction s/p CVA- intermittent but has not been present for past 2 days -Discussed with neuro on 11/06/20 -Asymptomatic this AM , no symptoms and neg orthostatics on last PT exam -Per neuro, no additional treatments, supportive care, PT/OT. Cannot add midodrine or fludrocortisone due to intermittently HIGH blood pressures (high as 170's systolic) -Monitor closely HTN -BP uncontrolled today -restarted low dose ACEi- monitor closely with problem above -Monitor closely Bradycardia, acute-improving slowly -HR currently 60-77 -Discussed with cardiology, continue to monitor. Not candidate for PM per Dr. 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 Guy): c/w medical management with ASA, plavix and statin. She will need f/u in 6 months with vascular and repeat Carotid US at that time. -Echo above -lipid panel wnl -PT/OT Ambulatory dysfunction s/p CVA -PT: "Patient's BP did not drop with transfers or supine>sit position. She completed a SPT from bed>chair with CGAx2 and RW, no LOB demonstrated. Plan to progress ambulation as tolerated. Patient would benefit from continued rehab at this time." -PT/OT -Likely ARU after weekend. HLD -Statin DVT px -Enoxaparin DISPOSITION: PT recommending ARU , likely go after weekend (unable to take two days prior to weekend). VS, I&O, 24H, Fishbone Vital Signs/I&O Vital Signs Date Time Temp Pulse Resp B/P (MAP) Pulse Ox O2 Delivery O2 Flow Rate FiO2 11/10/20 08:35 177/73 11/10/20 06:00 97.9 68 18 95 Room Air I&O- Last 24 Hours up to 6 AM 11/10/20 06:00 Intake Total 1320 ml Output Total 600 ml Balance 720 ml Laboratory Data 24H LABS Laboratory Tests 2 11/10/20 05:41: Nucleated Red Blood Cells % (auto) 0.0, Anion Gap 5L, Glomerular Filtration Rate > 60.0, Calcium Level 8.4L CBC/BMP Laboratory Tests 11/10/20 05:41 Microbiology Microbiology 11/04/20 Respiratory Virus Panel (PCR) ([facility]) - Final, Complete Current Medications Current Medications Medications (Trade) Dose Ordered Sig/Malina Route PRN Reason Start Time Stop Time Status Last Admin Dose Admin Aspirin (Ecotrin) 325 mg DAILY PO 11/05/20 09:00 11/10/20 08:35 Clopidogrel Bisulfate (PLAVix) 75 mg DAILY PO 11/04/20 15:00 11/10/20 08:35 Docusate Sodium (Colace) 100 mg BID PO 11/06/20 21:00 11/10/20 08:35 Enoxaparin Sodium (Lovenox) 40 mg DAILY@2100 SC 11/04/20 21:00 11/09/20 20:03 Home Med (Med Rec Complete!) ASDIRECTED XX 11/04/20 12:30 11/04/20 12:34 DC Lactulose (Cephulac) 30 ml DAILY PO 11/10/20 09:00 11/10/20 10:57 Lisinopril (Prinivil) 5 mg DAILY PO 11/10/20 09:00 11/10/20 08:35 Lisinopril (Prinivil) 20 mg DAILY PO 11/04/20 09:00 11/05/20 11:24 DC 11/05/20 08:31 Polyethylene Glycol (Miralax) 1 pkt DAILY PO 11/09/20 09:00 11/10/20 08:35 Polyethylene Glycol (Miralax) 1 pkt DAILYPRN PRN PO CONSTIPATION 11/06/20 17:50 11/09/20 09:33 DC 11/09/20 08:19 Senna (Senokot) 2 tab QHS PO 11/06/20 21:00 11/09/20 20:03 Simvastatin (Zocor) 40 mg QHS PO 11/04/20 21:00 11/09/20 20:02 Allergies Coded Allergies: hydrocodone (Verified Allergy, Unknown, hallucinations , 11/04/20) meperidine (Verified Allergy, Unknown, anaphylaxis , 11/04/20) Arlet Lentz MD Nov 10, 2020 11:25
[2020-11-10 14:38] VITALS: BP 154/54
[2020-11-10] MEDS: SENNA 8.6 MG TAB (SENOKOT) PO SCH (20:54)
[2020-11-10] MEDS: SIMVASTATIN 40 MG TAB PO SCH (20:54)
[2020-11-10] MEDS: ENOXAPARIN 40MG/0.4ML SYRINGE (J1650 PER 10MG) SC SCH (20:55)
[2020-11-10 22:00] VITALS: BP 162/73
[2020-11-11 05:22] LABS: HEMATOCRIT 36.7 % (36.0-47.0); MEAN CORPUSCULAR HEMOGLOBIN 29.6 pg (27.0-33.0); MEAN CORPUSCULAR HGB CONC 32.7 g/dl (32.0-36.5); MEAN CORPUSCULAR VOLUME 90.6 fl (80.0-96.0); PLATELET COUNT, AUTOMATED 199 10^3/uL (150-450); RED BLOOD COUNT 4.05 10^6/uL (4.00-5.40); WHITE BLOOD COUNT 7.5 10^3/uL (4.0-10.0)
[2020-11-11 05:44] LABS: BLOOD UREA NITROGEN 21 MG/DL (7-18); CALCIUM LEVEL 8.6 MG/DL (8.8-10.2); CARBON DIOXIDE LEVEL 23 MEQ/L (21-32); CHLORIDE LEVEL 110 MEQ/L (98-107); CREATININE FOR GFR 0.75 MG/DL (0.55-1.30); GLOMERULAR FILTRATION RATE > 60.0 (>32); GLUCOSE, FASTING 102 MG/DL (70-100); POTASSIUM SERUM 4.2 MEQ/L (3.5-5.1); SODIUM LEVEL 139 MEQ/L (136-145)
[2020-11-11 06:00] VITALS: BP 154/65
[2020-11-11] MEDS ORDERED: SENN18TA PO (07:47)
[2020-11-11] MEDS ORDERED: POLY17PO18 PO (07:47)
[2020-11-11] MEDS ORDERED: DOK1CAP7 PO (07:47)
[2020-11-11] MEDS ORDERED: LISI-898 PO (07:47)
[2020-11-11] MEDS ORDERED: CLOP75TA2 PO (07:47)
[2020-11-11] MEDS: LACTULOSE 20 GM/30 ML SYRUP UD PO SCH (08:44)
[2020-11-11 08:45] VITALS: BP 154/55
[2020-11-11] MEDS: CLOPIDOGREL 75 MG TAB PO SCH (08:45)
[2020-11-11] MEDS: DOCUSATE SODIUM 100MG CAPSULE PO SCH (08:45)
[2020-11-11] MEDS: ASPIRIN ENTERIC 325 MG TAB PO SCH (08:45)
[2020-11-11] MEDS: MIRALAX *UNIT DOSE* 17GM PACKET PO SCH (08:45)
[2020-11-11 14:00] VITALS: BP 181/72
[2020-11-11 14:40] VITALS: BP 140/60
--- NOTE | 2020-11-11 19:00 | DS.PDOC ---
Discharge Summary General Date of Admission Nov 05, 2020 at 10:16 Date of Discharge 11/11/20 Attending Physician: Arlet Lentz MD Discharge Summary HISTORY OF PRESENT ILLNESS: Patient is an 89-year-old followed at [facility] who came to the emergency room on 11/05/20 because she "felt weak all over," but then narrowed her symptoms to being primarily numbness in the right hand, as well as the right side of her face interfering with her speech concerned she night have had a stroke. She is being admitted for further treatment. 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 She had no increased focal deficits, neuro checks wnl this hospitalization. Vascular surgery (Dr. Guy) was consulted and thoroughly evaluated. She recommended c/w medical management with ASA, plavix and statin. She will need f/u in 6 months with vascular and repeat Carotid US at that time. Echo was done this admission . Lipid panel wnl. Patient experienced some orthostatic hypotension likely 2/2 to autonomic dysfunction s/p CVA- intermittent. This was discussed with neuro on 11/06/20. She has been asymptomatic since 11/07/20, no symptoms and neg orthostatics on last PT exam. Per neuro, no additional treatments, supportive care, PT/OT. Cannot add midodrine or fludrocortisone due to intermittently HIGH blood pressures (high as 170's systolic). Her blood pressure remained slightly elevated on 11/11/20 and ACEi was reincorporated back into her regimen at lower dose than previously. She has tolerated that fine. The bradycardia she was experiencing on admission and the several days prior was likely 2/2 to prior BB use -improving slowly. HR currently 60-77. Earlier this was discussed with cardiology, wished to continue to monitor. Not candidate for PM per Dr. Waddell. She had ambulatory dysfunction s/p CVA and PT recommended continued rehabilitation. On 11/11/20 she was discharged from acute inpatient and admitted to ARU for further treatment. AT time of d/c she denied chest pain, n/v/d, shortness of breath, LH, dizziness. PAST MEDICAL HISTORY/PAST SURGICAL HISTORY: Hypertensive heart disease. Coronary artery disease status post five vessel CABG 08/2006 with a left internal mammary artery to the LAD, sequential vein graft to the marginal, distal RCA, posterior descending artery, and LV branch. Cardiac catheterization 12/2008, ejection fraction 60% to 65%. Had a drug eluting stent to the right coronary artery. Hyperlipidemia. Iron deficiency anemia. Vitamin D deficiency. Colon cancer T3 N0 M0 12/2012, underwent right hemicolectomy with anastomosis. DISCHARGE MEDICATIONS: Please see below. PHYSICAL EXAMINATION: VITAL SIGNS: Please see below GENERAL: AAOx3, resting in bedside chair, in good spirits HEENT: Pupils equal and reactive to light. Extraocular movements intact. Tongue protrudes midline. NECK: Supple. No carotid bruits. LUNGS: CTAB, no W/r/R HEART: S1S2 +, 1/6 systolic ejection murmur, S1S2 + no gallops ABDOMEN: Soft and nontender with no masses. EXTREMITIES: No clubbing or cyanosis. Trace peripheral edema. Pulses are full in all four extremities. NEURO: 5/5 in all extremities, no focal deficits. no sensory or motor deficits. CN 2-12 in tact. PSYCH: mood and affect appropriate. LABORATORY: Please see below IMAGING: Echocardiogram: EF 60% Study is of acceptable technical quality. Underlying sinus bradycardia with wide QRS complex. Normal LV size with normal LV systolic function and grade 2 diastolic dysfunction. Normal RV size. Severe biatrial enlargement. No significant valvular disease. Apparent atherosclerosis in abdominal aorta. Negative bubble study. Carotid US: 1. Absence of diastolic blood flow in the right common carotid artery. 2. The right carotid bulb is occluded or nearly occluded. Diminished blood flow velocity in the more distal portions of the cervical right ICA. 3. Diminished flow in the right external carotid artery. 4. Left ICA peak systolic velocity elevation consistent with 50-69% stenosis. 5. The visualized vertebral arteries demonstrate antegrade flow. MRI brain: Suspicious for a focal, acute infarct in the right medulla. 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 There is pulmonary venous hypertension without pulmonary edema. Some underlying interstitial fibrotic change without acute infiltrate. Blunting left CP angle could be scar, pleural thickening/effusion or atelectasis. 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 PLAN: Orthostatic hypotension likely 2/2 to autonomic dysfunction s/p CVA- intermittent but has not been present for past 2 days -Discussed with neuro on 11/06/20 -Asymptomatic this AM , no symptoms and neg orthostatics on last PT exam -Per neuro, no additional treatments, supportive care, PT/OT. Cannot add midodrine or fludrocortisone due to intermittently HIGH blood pressures (high as 170's systolic) -Monitor closely HTN -BP still slightly elevated today -Increased ACEi to lisinopril 10 mg PO daily -Monitor closely Bradycardia possibly 2/2 to prior BB use -improving slowly -HR currently 60-77 -Discussed with cardiology, continue to monitor. Not candidate for PM per Dr. 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 Guy): c/w medical management with ASA, plavix and statin. She will need f/u in 6 months with vascular and repeat Carotid US at that time. -Echo above -lipid panel wnl -PT/OT Ambulatory dysfunction s/p CVA -PT: "Patient's BP did not drop with transfers or supine>sit position. She completed a SPT from bed>chair with CGAx2 and RW, no LOB demonstrated. Plan to progress ambulation as tolerated. Patient would benefit from continued rehab at this time." -PT/OT HLD -Statin DISPOSITION: Discharge to ARU today. Will need f/u with vascular surgery in 6 months. TIME SPENT ON DISCHARGE: 35 minutes. Vital Signs/I&Os Vital Signs Date Time Temp Pulse Resp B/P (MAP) Pulse Ox O2 Delivery O2 Flow Rate FiO2 11/11/20 14:40 140/60 (86) 11/11/20 14:00 98.4 58 18 97 Room Air I&O- Last 24 Hours up to 6 AM 11/11/20 06:00 Intake Total 2140 ml Output Total 0 ml Balance 2140 ml Laboratory Data Labs 24H Laboratory Tests 2 11/11/20 05:02: Nucleated Red Blood Cells % (auto) 0.0, Anion Gap 6L, Glomerular Filtration Rate > 60.0, Calcium Level 8.6L CBC/BMP Laboratory Tests 11/11/20 05:02 Microbiology Microbiology 11/04/20 Respiratory Virus Panel (PCR) ([facility]) - Final, Complete Discharge Medications Scheduled Aspirin (Aspirin EC) 325 Mg Tablet.dr, 325 MG PO DAILY, (Reported) Calcium Carbonate/Vitamin D3 (Os-Bolivar 500-Vit D3 600 Caplet) 1 Each Tablet, 1 TAB PO BID, (Reported) Clopidogrel Bisulfate (Clopidogrel) 75 Mg Tablet, 75 MG PO DAILY Docusate Sodium (Dok) 100 Mg Capsule, 100 MG PO BID Lisinopril (Lisinopril) 5 Mg Tablet, 10 MG PO DAILY Multivitamins (Thera M Plus Tablet) 1 Each Tablet, 1 TAB PO DAILY, (Reported) Polyethylene Glycol 3350 (Polyethylene Glycol 3350) 17 Gm Powd.pack, 1 PKT PO DAILY Senna (Senna Lax) 8.6 Mg Tablet, 2 TAB PO QHS Simvastatin (Simvastatin) 40 Mg Tablet, 40 MG PO QHS, (Reported) Allergies Coded Allergies: hydrocodone (Verified Allergy, Unknown, hallucinations , 11/04/20) meperidine (Verified Allergy, Unknown, anaphylaxis , 11/04/20) Arlet Lentz MD Nov 11, 2020 19:00
== END 2020-11-11 14:40 | DRG 66 ==
LOC: M ED 10:14 → M ED INP 10:15 → M PCU 17:46 → OBSVTOIN 11-05 10:16 → M MS5PR 11-08 17:15
PROVIDERS: ADMIT Family Medicine; ATTEND Internal Medicine
DX: I63.211 Cerebral infarction due to unspecified occlusion or stenosis of right vertebral artery (principal); E78.5 Hyperlipidemia, unspecified; I11.9 Hypertensive heart disease without heart failure; I25.10 Atherosclerotic heart disease of native coronary artery without angina pectoris; D50.9 Iron deficiency anemia, unspecified; I63.231 Cerebral infarction due to unspecified occlusion or stenosis of right carotid arteries; R29.810 Facial weakness; R00.1 Bradycardia, unspecified; R47.1 Dysarthria and anarthria; E55.9 Vitamin D deficiency, unspecified; Z66 Do not resuscitate; Z95.5 Presence of coronary angioplasty implant and graft; Z85.038 Personal history of other malignant neoplasm of large intestine; Z90.49 Acquired absence of other specified parts of digestive tract; Z88.5 Allergy status to narcotic agent; Z79.82 Long term (current) use of aspirin; Z79.899 Other long term (current) drug therapy

== ENCOUNTER 2020-11-11 13:52 | Inpatient (IN) | payer MEDICARE, OTHER ==
[~2020-11-11] VITALS: Ht 154.9 cm; Wt 64.2 kg
[~2020-11-11 13:52] MED LIST changes: +ASPI325T49 PO; +CLOP75TA2 PO; +DOK1CAP7 PO; +LISI-898 PO; +LISI20TA33 PO; +METO1TAB87 PO; +OS-CTAB PO; +POLY17PO18 PO; +SENN18TA PO; +SIMV40TA20 PO; +VITMTA PO
[2020-11-11 14:42] VITALS: BP 153/70
[2020-11-11] MEDS ORDERED: ACETAMINOPHEN TAB 650MG DOSE (2X325MG) PO PRN (16:20)
[2020-11-11 20:20] VITALS: BP 150/78
[2020-11-11] MEDS: DOCUSATE SODIUM 100MG CAPSULE PO SCH (20:59)
[2020-11-11] MEDS: SENNA 8.6 MG TAB (SENOKOT) PO SCH (21:00)
[2020-11-11] MEDS: SIMVASTATIN 40 MG TAB PO SCH (21:00)
[2020-11-11] MEDS: **hydrALAZINE** 10 MG TAB PO SCH (21:00)
[2020-11-11] MEDS: REMEDY PHYTOPLEX Z-GUARD PASTE 113GM TUBE (FROM STOREROOM PRODUCT) TOP SCH (21:00)
[2020-11-11] MEDS: ENOXAPARIN 30MG/0.3ML SYRINGE (J1650 PER 10MG) SC SCH (21:15)
[2020-11-12 05:49] VITALS: BP 151/70
[2020-11-12 06:12] LABS: BASO # 0.1 10^3/uL (0.0-0.2); BASO % 1.2 % (0.0-1.0); EOS # 0.2 10^3/uL (0.0-0.5); EOS % 2.9 % (0.0-3.0); HEMOGLOBIN 11.9 g/dl (12.0-15.5); LYMPH # 1.4 10^3/uL (1.5-5.0); LYMPH % 19.7 % (24.0-44.0); MEAN CORPUSCULAR HEMOGLOBIN 29.2 pg (27.0-33.0); MEAN CORPUSCULAR HGB CONC 32.2 g/dl (32.0-36.5); MEAN CORPUSCULAR VOLUME 90.7 fl (80.0-96.0); MONO # 0.7 10^3/uL (0.0-0.8); MONO % 9.6 % (2.0-8.0); NEUTROPHILS # 4.5 10^3/uL (1.5-8.5); NEUTROPHILS % 64.9 % (36.0-66.0); PLATELET COUNT, AUTOMATED 190 10^3/uL (150-450); RED BLOOD COUNT 4.08 10^6/uL (4.00-5.40); WHITE BLOOD COUNT 6.9 10^3/uL (4.0-10.0)
[2020-11-12 06:39] LABS: ALBUMIN 2.9 GM/DL (3.2-5.2); ALT/SGPT 31 U/L (12-78); BILIRUBIN,TOTAL 0.3 MG/DL (0.2-1.0); BLOOD UREA NITROGEN 21 MG/DL (7-18); CALCIUM LEVEL 8.7 MG/DL (8.8-10.2); CARBON DIOXIDE LEVEL 25 MEQ/L (21-32); CHLORIDE LEVEL 109 MEQ/L (98-107); GLOMERULAR FILTRATION RATE > 60.0 (>32); GLUCOSE, FASTING 98 MG/DL (70-100); POTASSIUM SERUM 4.3 MEQ/L (3.5-5.1); SODIUM LEVEL 140 MEQ/L (136-145); TOTAL PROTEIN 6.2 GM/DL (6.4-8.2)
[2020-11-12] MEDS: CLOPIDOGREL 75 MG TAB PO SCH (08:19)
[2020-11-12] MEDS: DOCUSATE SODIUM 100MG CAPSULE PO SCH ×2 (08:23→21:16)
[2020-11-12] MEDS: PANTOPRAZOLE 40MG TAB (PROTONIX) PO SCH (08:23)
[2020-11-12] MEDS: **hydrALAZINE** 10 MG TAB PO SCH ×3 (08:24→21:16)
[2020-11-12] MEDS: ASPIRIN ENTERIC 325 MG TAB PO SCH (08:24)
[2020-11-12] MEDS: LACTULOSE 20 GM/30 ML SYRUP UD PO SCH (08:24)
[2020-11-12] MEDS: REMEDY PHYTOPLEX Z-GUARD PASTE 113GM TUBE (FROM STOREROOM PRODUCT) TOP SCH ×3 (08:27→21:21)
--- NOTE | 2020-11-12 11:30 | CR ---
CONSULTATION DATE: 11/12/2020 REASON FOR CONSULTATION: This is a hospitalist-generated medical consult. She was recently admitted 11/05 through 11/11/2020 to the hospitalist service with a stroke. She was found to have a right medullary stroke on MRI scan, right vertebral artery occlusion. Vascular Surgery saw her and recommended medical management, Aspirin, Plavix and a statin with a six month followup, repeat carotid ultrasound at that time. She has labile blood pressures. Prone orthostatic hypotension due to autonomic dysfunction. Blood pressures are symptomatically low at times and asymptomatically high up in the 170s systolic at other times. She was seen by cardiology during her acute admission as well. PAST MEDICAL HISTORY: Shows coronary disease status post five vessel CABG 2005. She had a cardiac catheterization in 2008, ejection fraction 65%, drug-eluting stent placed in the right coronary artery (RCA), history of hypertensive heart disease, hyperlipidemia, iron-deficiency anemia, colon cancer T3N0M0 12/24 and underwent right hemicolectomy. CURRENT MEDICATIONS: Current medication list was reviewed. ALLERGIES: HYDROCONE and DEMEROL. REVIEW OF SYSTEMS: No current chest pain, shortness of breath, focal weakness. PHYSICAL EXAMINATION: Vital signs per flow sheet. General Appearance: Alert, conversant, no distress. HEENT: No facial droop or weakness. Lungs: Clear. Heart: Regular rate and rhythm. Abdomen: Soft, nontender. No masses. Extremities: No peripheral edema. Neurologic: Normal strength in the arms and legs. LABS: CBC unremarkable. CMP looks unremarkable. IMPRESSION AND PLAN: 1. Recent stroke. Continue Aspirin, Plavix and statin therapy. 2. Hypertension. Her blood pressure is labile. I would avoid aggressive treatment of this as she is prone to hypotension. Continue Lisinopril 10 mg daily, hydralazine 20 mg three times a day. 3. Carotid artery stenosis not severe enough for intervention. Vascular Surgery plans to see in six months. If there are any medical issues that occur, please feel free to reach out and for reevaluation.
[2020-11-12 14:00] VITALS: BP 166/70
--- NOTE | 2020-11-12 14:12 | HPEPDOC ---
Development Associate Note DATE OF ADMISSION: 11-11-20 DATE OF SERVICE: 11-12-20 TIME OF ADMISSION: Please refer to physician's admission order. SOURCE OF ADMISSION INFORMATION: [facility] record and patient CHIEF COMPLAINT: stroke HISTORY OF PRESENT ILLNESS: 89F pmh TIAs/CVA with residual right sided weakness and facial droop, HTN, HLD, anemia, vitamin D deficiency, colon cancer s/o right hemicolectomy, CAD s/p CABG 2005 who presented to [facility] ED on 11/04/20 with weakness and right hand numbness. MRI head and neck showed right vertebral artery occlusion with US showing right carotid bulb is occluded or nearly occluded". Brain MRI showed, Suspicious for a focal, acute infarct in the right medulla. Vascular surgery was consulted and recommended ASA, Plavix, and statin as surgical intervention was not an option, but to follow-up in 6 months for repeat carotid US. She was found to be bradycardic in the setting of hypertension for which her beta-patircia was held. And BP meds added for intermittent HTN. She was evaluated by therapy, noted to have impairment sin mobility and ADLs and deemed medically appropriate for discharge to ARU on 11-11-20. REVIEW OF SYSTEMS: The following is a completed review of systems and has been reviewed. Review of systems otherwise unremarkable. PAIN: Patient self reports no pain EYES: decreased vision since stroke EARS, NOSE, & THROAT: No throat pain, or dysphagia, or rhinorrhea CARDIOVASCULAR: Denies chest pain or palpitations PULMONARY: Denies shortness of breath GASTROINTESTINAL: Denies constipation/diarrhea GENITOURINARY: denies dysuria MUSCULOSKELETAL: right sided weakness NEUROLOGICAL:right sided weakness HEMATOLOGICAL: denies easy bruising SKIN: intact PSYCHIATRIC: Unremarkable All other review of systems found to be negative. PAST MEDICAL HISTORY: as per HPI PAST SURGICAL HISTORY: as per HPI ALLERGIES: Please see below. MEDICATIONS: Please see below. SOCIAL HISTORY: no etoh/illicit drugs/smoknig DIET:low sodium fluid restrict PHYSICAL EXAMINATION: VITAL SIGNS: Please see below. GENERAL: Pleasant and cooperative. No acute distress. left sided facial droop HEENT: PERRL. Extraocular movements intact. Clear conjunctiva CARDIOVASCULAR: Regular rate and rhythm. No murmurs, rubs, or gallops LUNGS: clear to auscultation bilaterally. No wheezes. No rhonchi ABDOMEN: Soft, nontender, nondistended. Positive bowel sounds. Normal active bowel sounds NEUROLOGICAL: Alert and oriented times three. Cranial nerves II through XII grossly intact. Sensation grossly intact EXTREMITIES: 4/5 RUE, 5/5 LUE, 5\\5 strength right lower extremity. 5/5 strength in left lower extremity. LABORATORY DATA: Please see below. IMAGING:Imaging documentation personally reviewed by record FUNCTIONAL STATUS: Premorbid: Independent with all activities of daily life as well as mobility On Admission: Min assist for bed mobility, dressing, toileting, ambulation GOALS: Mod-I household distances for ambulation, transfers, bathing, dressing, toileting ASSESSMENT:89-year-old F with past medical history of TIA/stoke who presents status post new stroke PLAN: 1. 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 cardiac- Grade 2 diastolic CHF, c/u daily weights, and fluid restrict, will monitor for edema -HTN c/u lisinopril, will add hydralazine for sBP <140, CAD s/p CABG- beta patricia on hold due to bradycardia c/u ASA -HLD- c/u statin -medicine consulted to assist in overall management 4. Resp-monitor for infection 5. GI ppx- protonix 6. DVT ppx- Lovenox 7. Pain- tylenol prn 8. Dispo- tbd POST ADMISSION PHYSICIAN EVALUATION: Medical and functional status: Description of medical status, medical assessment: As above. Rehabilitation diagnosis and current and prior cold morbid medical conditions as above. Risk of complications and plans to mitigate them as above. Description of functional status current status is as above. Prior status as above. Status compared to preadmission: There are no clinically significant differences between the patient's current status and the information described on the preadmission screening document. Treatment plan anticipated: Treatment plan is as described above. Required disciplines including physical therapy, occupational therapy, others as noted above. Intensity of services: 3 hours a day, 6 days a week. Special considerations: There are no specific special or safety considerations that would likely preclude immediate implementation of an intensive rehabilitation program or subsequently influence the plan of care. ATTESTATION: Considering all the information above, it is my best judgment that this patient requires intensive rehabilitation therapy as described above and an inpatient hospital environment due to the complexity of nursing, medical, and rehabilitation needs required by the patient. Furthermore, this patient can reasonably be expected to participate in an benefit from an inpatient rehabilitation stay with an interdisciplinary team approach to the delivery of rehabilitation care under the direction and supervision of rehabilitation physician. PROGNOSIS: good ESTIMATED LENGTH OF STAY:10-14 days. PROJECTED DISCHARGE DESTINATION: Home with family support and any durable medical equipment required to increase functional safety and mobility TIME SPENT COUNSELING AND COORDINATING INITIAL CARE: Greater than 70 minutes. Vital Signs Vital Sign - Last 24 Hours 11/11/20 11/11/20 11/11/20 11/12/20 14:42 20:20 21:00 05:49 Temp 97.4 98.3 97.7 Pulse 65 69 53 Resp 18 18 18 B/P (MAP) 153/70 (97) 150/78 (102) 150/78 151/70 (97) Pulse Ox 98 94 97 O2 Delivery Room Air Room Air Room Air 11/12/20 11/12/20 08:23 08:24 B/P (MAP) 161/69 161/69 Laboratory Data CBC/BMP Laboratory Tests 11/12/20 05:44 Labs 24H Laboratory Tests 2 11/12/20 05:44: Immature Granulocyte % (Auto) 1.7, Neutrophils (%) (Auto) 64.9, Lymphocytes (%) (Auto) 19.7L, Monocytes (%) (Auto) 9.6H, Eosinophils (%) (Auto) 2.9, Basophils (%) (Auto) 1.2H, Neutrophils # (Auto) 4.5, Lymphocytes # (Auto) 1.4L, Monocytes # (Auto) 0.7, Eosinophils # (Auto) 0.2, Basophils # (Auto) 0.1, Nucleated Red Blood Cells % (auto) 0.0, Anion Gap 6L, Glomerular Filtration Rate > 60.0, Calcium Level 8.7L, Total Bilirubin 0.3, Aspartate Amino Transf (AST/SGOT) 28, Alanine Aminotransferase (ALT/SGPT) 31, Alkaline Phosphatase 85, Total Protein 6.2L, Albumin 2.9L, Albumin/Globulin Ratio 0.9L Home Medications Scheduled Aspirin (Aspirin EC) 325 Mg Tablet.dr, 325 MG PO DAILY, (Reported) Calcium Carbonate/Vitamin D3 (Os-Bolivar 500-Vit D3 600 Caplet) 1 Each Tablet, 1 TAB PO BID, (Reported) Clopidogrel Bisulfate (Clopidogrel) 75 Mg Tablet, 75 MG PO DAILY Docusate Sodium (Dok) 100 Mg Capsule, 100 MG PO BID Lisinopril (Lisinopril) 5 Mg Tablet, 10 MG PO DAILY Multivitamins (Thera M Plus Tablet) 1 Each Tablet, 1 TAB PO DAILY, (Reported) Polyethylene Glycol 3350 (Polyethylene Glycol 3350) 17 Gm Powd.pack, 1 PKT PO DAILY Senna (Senna Lax) 8.6 Mg Tablet, 2 TAB PO QHS Simvastatin (Simvastatin) 40 Mg Tablet, 40 MG PO QHS, (Reported) Allergies Coded Allergies: hydrocodone (Verified Allergy, Unknown, hallucinations , 11/04/20) meperidine (Verified Allergy, Unknown, anaphylaxis , 11/04/20) A-FIB/CHADSVASC A-FIB History Current/History of A-Fib/PAF?: No Current PO Anticoag Therapy: No RICHIE BASS MD Nov 12, 2020 14:12
[2020-11-12 20:06] VITALS: BP 180/76
[2020-11-12] MEDS: ENOXAPARIN 30MG/0.3ML SYRINGE (J1650 PER 10MG) SC SCH (21:15)
[2020-11-12] MEDS: SIMVASTATIN 40 MG TAB PO SCH (21:16)
[2020-11-12] MEDS: SENNA 8.6 MG TAB (SENOKOT) PO SCH (21:16)
[2020-11-13 05:26] VITALS: BP 164/75
[2020-11-13 08:46] VITALS: BP 131/93
[2020-11-13] MEDS: REMEDY PHYTOPLEX Z-GUARD PASTE 113GM TUBE (FROM STOREROOM PRODUCT) TOP SCH ×3 (09:00→21:11)
[2020-11-13] MEDS: DOCUSATE SODIUM 100MG CAPSULE PO SCH ×2 (09:00→21:09)
[2020-11-13 09:10] VITALS: BP 142/64
[2020-11-13] MEDS: CLOPIDOGREL 75 MG TAB PO SCH (09:12)
[2020-11-13] MEDS: ASPIRIN ENTERIC 325 MG TAB PO SCH (09:13)
[2020-11-13] MEDS: **hydrALAZINE** 10 MG TAB PO SCH ×3 (09:13→21:00)
[2020-11-13] MEDS: PANTOPRAZOLE 40MG TAB (PROTONIX) PO SCH (09:13)
[2020-11-13] MEDS: LACTULOSE 20 GM/30 ML SYRUP UD PO SCH (09:13)
--- NOTE | 2020-11-13 09:24 | IPNPDOC ---
PM&R Progress Note DATE OF SERVICE: Nov 13, 2020 Vice President Network Development Progress Note Subjective: Patient stating she feels well, denies new weakness, and no difficulties going to the bathroom. REVIEW OF SYSTEMS: The following is a completed review of systems and has been reviewed. Review of systems otherwise unremarkable. PAIN: Patient self reports no pain EYES: decreased vision since stroke EARS, NOSE, & THROAT: No throat pain, or dysphagia, or rhinorrhea CARDIOVASCULAR: Denies chest pain or palpitations PULMONARY: Denies shortness of breath GASTROINTESTINAL: Denies constipation/diarrhea GENITOURINARY: denies dysuria MUSCULOSKELETAL: right sided weakness NEUROLOGICAL:right sided weakness HEMATOLOGICAL: denies easy bruising SKIN: intact PSYCHIATRIC: Unremarkable All other review of systems found to be negative. PHYSICAL EXAMINATION: VITAL SIGNS: Please see below. GENERAL: Pleasant and cooperative. No acute distress. left sided facial droop HEENT: PERRL. Extraocular movements intact. Clear conjunctiva CARDIOVASCULAR: Regular rate and rhythm. No murmurs, rubs, or gallops LUNGS: clear to auscultation bilaterally. No wheezes. No rhonchi ABDOMEN: Soft, nontender, nondistended. Positive bowel sounds. Normal active bowel sounds NEUROLOGICAL: Alert and oriented times three. Cranial nerves II through XII grossly intact. Sensation grossly intact EXTREMITIES: 4/5 RUE, 5/5 LUE, 5\5 strength right lower extremity. 5/5 strength in left lower extremity. LABORATORY DATA: Please see below. ASSESSMENT:89-year-old F with past medical history of TIA/stoke who presents status post new stroke PLAN: 1. 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 cardiac- Grade 2 diastolic CHF, c/u daily weights, and fluid restrict, will monitor for edema -HTN c/u lisinopril, will add hydralazine for sBP <140, CAD s/p CABG- beta patricia on hold due to bradycardia c/u ASA -HLD- c/u statin -medicine consulted to assist in overall management 4. Resp-monitor for infection 5. GI ppx- protonix 6. DVT ppx- Lovenox 7. Pain- tylenol prn 8. Dispo- tbd Allergies Coded Allergies: hydrocodone (Verified Allergy, Unknown, hallucinations , 11/04/20) meperidine (Verified Allergy, Unknown, anaphylaxis , 11/04/20) Vital Signs Vital Signs Date Time Temp Pulse Resp B/P (MAP) Pulse Ox O2 Delivery O2 Flow Rate FiO2 11/13/20 09:14 142/64 11/13/20 09:10 60 11/13/20 05:26 97.5 17 96 Room Air Current Medications Current Medications Current Medications Medications (Trade) Dose Ordered Sig/Malina Route PRN Reason Start Time Stop Time Status Last Admin Dose Admin Acetaminophen (Tylenol Tab) 650 mg Q4HP PRN PO fever/MILD PAIN (PS 1-4) 11/11/20 16:20 Aspirin (Ecotrin) 325 mg DAILY PO 11/12/20 09:00 11/13/20 09:13 Clopidogrel Bisulfate (PLAVix) 75 mg DAILY PO 11/12/20 09:00 11/13/20 09:12 Docusate Sodium (Colace) 100 mg BID PO 11/11/20 21:00 11/12/20 21:16 Enoxaparin Sodium (Lovenox) 40 mg DAILY@2100 SC 11/11/20 21:00 11/12/20 21:15 Hydralazine HCl (Apresoline) 20 mg TID PO 11/11/20 21:00 11/13/20 09:13 Lactulose (Cephulac) 30 ml DAILY PO 11/12/20 09:00 11/13/20 09:13 Lisinopril (Prinivil) 10 mg DAILY PO 11/12/20 09:00 11/13/20 09:14 Pantoprazole Sodium (Protonix) 40 mg DAILY PO 11/12/20 09:00 11/13/20 09:13 Senna (Senokot) 1 tab QHS PO 11/11/20 21:00 11/12/20 21:16 Simvastatin (Zocor) 40 mg QHS PO 11/11/20 21:00 11/12/20 21:16 RICHIE BASS MD Nov 13, 2020 09:24
[2020-11-13 10:16] LABS: BASO # 0.1 10^3/uL (0.0-0.2); EOS # 0.2 10^3/uL (0.0-0.5); EOS % 2.5 % (0.0-3.0); HEMATOCRIT 40.2 % (36.0-47.0); HEMOGLOBIN 12.9 g/dl (12.0-15.5); LYMPH # 1.4 10^3/uL (1.5-5.0); LYMPH % 17.4 % (24.0-44.0); MEAN CORPUSCULAR HGB CONC 32.1 g/dl (32.0-36.5); MEAN CORPUSCULAR VOLUME 90.3 fl (80.0-96.0); MONO # 0.5 10^3/uL (0.0-0.8); MONO % 6.6 % (2.0-8.0); NEUTROPHILS # 5.6 10^3/uL (1.5-8.5); NEUTROPHILS % 71.4 % (36.0-66.0); PLATELET COUNT, AUTOMATED 249 10^3/uL (150-450); RED BLOOD COUNT 4.45 10^6/uL (4.00-5.40); WHITE BLOOD COUNT 7.9 10^3/uL (4.0-10.0)
[2020-11-13 10:39] LABS: BLOOD UREA NITROGEN 21 MG/DL (7-18); CALCIUM LEVEL 9.2 MG/DL (8.8-10.2); CARBON DIOXIDE LEVEL 28 MEQ/L (21-32); CHLORIDE LEVEL 106 MEQ/L (98-107); CREATININE FOR GFR 0.77 MG/DL (0.55-1.30); GLOMERULAR FILTRATION RATE > 60.0 (>32); GLUCOSE, FASTING 110 MG/DL (70-100); POTASSIUM SERUM 3.7 MEQ/L (3.5-5.1); SODIUM LEVEL 141 MEQ/L (136-145)
[2020-11-13 14:00] VITALS: BP 157/67
[2020-11-13 16:48] VITALS: BP 166/73
[2020-11-13 20:00] VITALS: BP 136/62
[2020-11-13] MEDS: SENNA 8.6 MG TAB (SENOKOT) PO SCH (21:09)
[2020-11-13] MEDS: SIMVASTATIN 40 MG TAB PO SCH (21:09)
[2020-11-13] MEDS: ENOXAPARIN 40MG/0.4ML SYRINGE (J1650 PER 10MG) SC SCH (21:52)
[2020-11-14 05:20] VITALS: BP 127/60
[2020-11-14 08:32] VITALS: BP 154/67
[2020-11-14] MEDS: LACTULOSE 20 GM/30 ML SYRUP UD PO SCH (08:33)
[2020-11-14] MEDS: PANTOPRAZOLE 40MG TAB (PROTONIX) PO SCH (08:34)
[2020-11-14] MEDS: **hydrALAZINE** 10 MG TAB PO SCH ×3 (08:34→20:38)
[2020-11-14] MEDS: DOCUSATE SODIUM 100MG CAPSULE PO SCH ×3 (08:34→20:36)
[2020-11-14] MEDS: CLOPIDOGREL 75 MG TAB PO SCH (08:34)
[2020-11-14] MEDS: ASPIRIN ENTERIC 325 MG TAB PO SCH (08:35)
[2020-11-14] MEDS: REMEDY PHYTOPLEX Z-GUARD PASTE 113GM TUBE (FROM STOREROOM PRODUCT) TOP SCH ×3 (08:35→20:38)
[2020-11-14 14:00] VITALS: BP 130/60
--- NOTE | 2020-11-14 14:45 | IPNPDOC ---
PM&R Progress Note DATE OF SERVICE: Nov 14, 2020 Campaign Fundraiser Progress Note Subjective: Patient reports she is enjoying therapy and is hoping to be able to go home next week. REVIEW OF SYSTEMS: The following is a completed review of systems and has been reviewed. Review of systems otherwise unremarkable. PAIN: Patient self reports no pain EYES: decreased vision since stroke EARS, NOSE, & THROAT: No throat pain, or dysphagia, or rhinorrhea CARDIOVASCULAR: Denies chest pain or palpitations PULMONARY: Denies shortness of breath GASTROINTESTINAL: Denies constipation/diarrhea GENITOURINARY: denies dysuria MUSCULOSKELETAL: right sided weakness NEUROLOGICAL:right sided weakness HEMATOLOGICAL: denies easy bruising SKIN: intact PSYCHIATRIC: Unremarkable All other review of systems found to be negative. PHYSICAL EXAMINATION: VITAL SIGNS: Please see below. GENERAL: Pleasant and cooperative. No acute distress. left sided facial droop HEENT: PERRL. Extraocular movements intact. Clear conjunctiva CARDIOVASCULAR: Regular rate and rhythm. No murmurs, rubs, or gallops LUNGS: clear to auscultation bilaterally. No wheezes. No rhonchi ABDOMEN: Soft, nontender, nondistended. Positive bowel sounds. Normal active bowel sounds NEUROLOGICAL: Alert and oriented times three. Cranial nerves II through XII grossly intact. Sensation grossly intact EXTREMITIES: 4/5 RUE, 5/5 LUE, 5\5 strength right lower extremity. 5/5 strength in left lower extremity. LABORATORY DATA: Please see below. ASSESSMENT:89-year-old F with past medical history of TIA/stoke who presents status post new stroke PLAN: 1. Rehab- PT/OT, advance mobility and ADLs, strengthen/stretch/maintain ROM all 4 limbs -WIG STYLIST for cog and swallow eval 2. 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 cardiac- Grade 2 diastolic CHF, c/u daily weights, and fluid restrict, will monitor for edema -HTN c/u lisinopril, will add hydralazine for sBP <140, CAD s/p CABG- beta patricia on hold due to bradycardia c/u ASA -HLD- c/u statin -medicine consulted to assist in overall management 4. Resp-monitor for infection 5. GI ppx- protonix 6. DVT ppx- Lovenox 7. Pain- tylenol prn 8. Dispo- tbd Allergies Coded Allergies: hydrocodone (Verified Allergy, Unknown, hallucinations , 11/04/20) meperidine (Verified Allergy, Unknown, anaphylaxis , 11/04/20) Vital Signs Vital Signs Date Time Temp Pulse Resp B/P (MAP) Pulse Ox O2 Delivery O2 Flow Rate FiO2 11/14/20 14:00 96.7 63 17 130/60 (83) 96 Room Air Current Medications Current Medications Current Medications Medications (Trade) Dose Ordered Sig/Malina Route PRN Reason Start Time Stop Time Status Last Admin Dose Admin Acetaminophen (Tylenol Tab) 650 mg Q4HP PRN PO fever/MILD PAIN (PS 1-4) 11/11/20 16:20 Aspirin (Ecotrin) 325 mg DAILY PO 11/12/20 09:00 11/14/20 08:35 Clopidogrel Bisulfate (PLAVix) 75 mg DAILY PO 11/12/20 09:00 11/14/20 08:34 Docusate Sodium (Colace) 100 mg BID PO 11/11/20 21:00 11/13/20 21:09 Enoxaparin Sodium (Lovenox) 40 mg DAILY@2100 SC 11/11/20 21:00 11/13/20 21:11 DC 11/12/20 21:15 Enoxaparin Sodium (Lovenox) 40 mg DAILY@2100 SC 11/13/20 21:00 11/13/20 21:52 Hydralazine HCl (Apresoline) 20 mg TID PO 11/11/20 21:00 11/14/20 08:34 Lactulose (Cephulac) 30 ml DAILY PO 11/12/20 09:00 11/14/20 08:33 Lisinopril (Prinivil) 10 mg DAILY PO 11/12/20 09:00 11/14/20 08:34 Pantoprazole Sodium (Protonix) 40 mg DAILY PO 11/12/20 09:00 11/14/20 08:34 Senna (Senokot) 1 tab QHS PO 11/11/20 21:00 11/13/20 21:09 Simvastatin (Zocor) 40 mg QHS PO 11/11/20 21:00 11/13/20 21:09 RICHIE BASS MD Nov 14, 2020 14:45
[2020-11-14 15:32] VITALS: BP 155/67
[2020-11-14 20:00] VITALS: BP 134/63
[2020-11-14] MEDS: SIMVASTATIN 40 MG TAB PO SCH (20:36)
[2020-11-14] MEDS: SENNA 8.6 MG TAB (SENOKOT) PO SCH (20:36)
[2020-11-14] MEDS: ENOXAPARIN 40MG/0.4ML SYRINGE (J1650 PER 10MG) SC SCH (20:38)
[2020-11-15 05:18] LABS: BASO # 0.1 10^3/uL (0.0-0.2); BASO % 1.1 % (0.0-1.0); EOS # 0.2 10^3/uL (0.0-0.5); EOS % 2.6 % (0.0-3.0); HEMATOCRIT 35.3 % (36.0-47.0); HEMOGLOBIN 11.3 g/dl (12.0-15.5); LYMPH # 1.3 10^3/uL (1.5-5.0); LYMPH % 20.5 % (24.0-44.0); MEAN CORPUSCULAR VOLUME 90.7 fl (80.0-96.0); MONO # 0.7 10^3/uL (0.0-0.8); MONO % 10.7 % (2.0-8.0); NEUTROPHILS # 3.9 10^3/uL (1.5-8.5); NEUTROPHILS % 63.8 % (36.0-66.0); PLATELET COUNT, AUTOMATED 193 10^3/uL (150-450); RED BLOOD COUNT 3.89 10^6/uL (4.00-5.40); WHITE BLOOD COUNT 6.1 10^3/uL (4.0-10.0)
[2020-11-15 05:26] VITALS: BP 133/63
[2020-11-15 05:39] LABS: BLOOD UREA NITROGEN 26 MG/DL (7-18); CARBON DIOXIDE LEVEL 23 MEQ/L (21-32); CHLORIDE LEVEL 108 MEQ/L (98-107); GLOMERULAR FILTRATION RATE > 60.0 (>32); GLUCOSE, FASTING 103 MG/DL (70-100); POTASSIUM SERUM 4.4 MEQ/L (3.5-5.1); SODIUM LEVEL 140 MEQ/L (136-145)
[2020-11-15 05:40] LABS: CALCIUM LEVEL 8.5 MG/DL (8.8-10.2)
[2020-11-15] MEDS: **hydrALAZINE** 10 MG TAB PO SCH ×3 (07:11→21:06)
[2020-11-15] MEDS: DOCUSATE SODIUM 100MG CAPSULE PO SCH ×2 (07:27→21:06)
[2020-11-15] MEDS: CLOPIDOGREL 75 MG TAB PO SCH (07:27)
[2020-11-15] MEDS: REMEDY PHYTOPLEX Z-GUARD PASTE 113GM TUBE (FROM STOREROOM PRODUCT) TOP SCH ×3 (07:27→21:06)
[2020-11-15] MEDS: LACTULOSE 20 GM/30 ML SYRUP UD PO SCH (07:27)
[2020-11-15] MEDS: ASPIRIN ENTERIC 325 MG TAB PO SCH (07:27)
[2020-11-15] MEDS: PANTOPRAZOLE 40MG TAB (PROTONIX) PO SCH (07:27)
--- NOTE | 2020-11-15 08:39 | IPN ---
PROGRESS NOTE DATE: 11/15/2020 SUBJECTIVE: Marisela is seen in the ARU. She is feeling well. She would like to go home. I feel she has had good recovery. She was admitted after having a right medullary stroke. Blood pressures have been labile although seem to have stabilized. No focal weakness, vision loss or dysarthria. OBJECTIVE: PHYSICAL EXAMINATION: VITAL SIGNS: Blood pressure 133/63. There are no standing hypotensive events recorded. Afebrile. GENERAL APPEARANCE: Alert, conversant, in no distress. HEENT: Unremarkable. LUNGS: Clear. HEART: Rhythm 1/6 systolic ejection murmur. ABDOMEN: Soft, nontender, no masses. EXTREMITIES: Trace edema. NEUROLOGICAL: Nonfocal. LABORATORY STUDIES: CBC today - white count 6.1, hemoglobin 11.3, platelet count 193. Sodium 140, potassium 4.4, BUN 26, creatinine 0.8, glucose 103. IMPRESSION: 1. Hypertension it has been labile in the past. This seems to stabilize, well controlled. 2. Recent stroke - treatment plan per ARU. 3. Coronary artery stenosis has follow up with Vascular Surgery as an outpatient.
[2020-11-15 14:00] VITALS: BP 168/74
[2020-11-15 16:35] VITALS: BP 176/72
[2020-11-15 20:20] VITALS: BP 152/79
[2020-11-15] MEDS: ENOXAPARIN 40MG/0.4ML SYRINGE (J1650 PER 10MG) SC SCH (21:05)
[2020-11-15] MEDS: SIMVASTATIN 40 MG TAB PO SCH (21:06)
[2020-11-15] MEDS: SENNA 8.6 MG TAB (SENOKOT) PO SCH (21:06)
[2020-11-16 06:35] VITALS: BP 143/64
[2020-11-16] MEDS: PANTOPRAZOLE 40MG TAB (PROTONIX) PO SCH (09:31)
[2020-11-16] MEDS: CLOPIDOGREL 75 MG TAB PO SCH (09:31)
[2020-11-16] MEDS: DOCUSATE SODIUM 100MG CAPSULE PO SCH ×2 (09:31→20:35)
[2020-11-16] MEDS: LACTULOSE 20 GM/30 ML SYRUP UD PO SCH (09:31)
[2020-11-16] MEDS: ASPIRIN ENTERIC 325 MG TAB PO SCH (09:31)
[2020-11-16] MEDS: **hydrALAZINE** 10 MG TAB PO SCH ×3 (09:33→20:35)
[2020-11-16] MEDS: REMEDY PHYTOPLEX Z-GUARD PASTE 113GM TUBE (FROM STOREROOM PRODUCT) TOP SCH ×3 (09:34→20:36)
[2020-11-16 14:00] VITALS: BP 141/64
[2020-11-16 20:00] VITALS: BP 143/65
[2020-11-16] MEDS: SENNA 8.6 MG TAB (SENOKOT) PO SCH (20:35)
[2020-11-16] MEDS: ENOXAPARIN 40MG/0.4ML SYRINGE (J1650 PER 10MG) SC SCH (20:35)
[2020-11-16] MEDS: SIMVASTATIN 40 MG TAB PO SCH (20:35)
[2020-11-17 05:34] VITALS: BP 139/62
[2020-11-17] MEDS: CLOPIDOGREL 75 MG TAB PO SCH (09:48)
[2020-11-17] MEDS: DOCUSATE SODIUM 100MG CAPSULE PO SCH ×2 (09:48→21:45)
[2020-11-17] MEDS: ASPIRIN ENTERIC 325 MG TAB PO SCH (09:48)
[2020-11-17] MEDS: PANTOPRAZOLE 40MG TAB (PROTONIX) PO SCH (09:48)
[2020-11-17] MEDS: REMEDY PHYTOPLEX Z-GUARD PASTE 113GM TUBE (FROM STOREROOM PRODUCT) TOP SCH ×3 (09:49→21:00)
[2020-11-17] MEDS: **hydrALAZINE** 10 MG TAB PO SCH ×3 (09:50→21:47)
[2020-11-17] MEDS: LACTULOSE 20 GM/30 ML SYRUP UD PO SCH (09:50)
[2020-11-17 14:00] VITALS: BP 148/67
[2020-11-17 20:00] VITALS: BP 142/65
--- NOTE | 2020-11-17 20:36 | IPNPDOC ---
PM&R Progress Note DATE OF SERVICE: Nov 15, 2020 Boxing Trainer Progress Note Subjective: Patient worried about getting her November bills paid in time and would like to have family training corin next week to facilitate and discharge to home hopefully by Wednesday. REVIEW OF SYSTEMS: The following is a completed review of systems and has been reviewed. Review of systems otherwise unremarkable. PAIN: Patient self reports no pain EYES: decreased vision since stroke EARS, NOSE, & THROAT: No throat pain, or dysphagia, or rhinorrhea CARDIOVASCULAR: Denies chest pain or palpitations PULMONARY: Denies shortness of breath GASTROINTESTINAL: Denies constipation/diarrhea GENITOURINARY: denies dysuria MUSCULOSKELETAL: right sided weakness NEUROLOGICAL:right sided weakness HEMATOLOGICAL: denies easy bruising SKIN: intact PSYCHIATRIC: Unremarkable All other review of systems found to be negative. PHYSICAL EXAMINATION: VITAL SIGNS: Please see below. GENERAL: Pleasant and cooperative. No acute distress. left sided facial droop HEENT: PERRL. Extraocular movements intact. Clear conjunctiva CARDIOVASCULAR: Regular rate and rhythm. No murmurs, rubs, or gallops LUNGS: clear to auscultation bilaterally. No wheezes. No rhonchi ABDOMEN: Soft, nontender, nondistended. Positive bowel sounds. Normal active bowel sounds NEUROLOGICAL: Alert and oriented times three. Cranial nerves II through XII grossly intact. Sensation grossly intact EXTREMITIES: 4/5 RUE, 5/5 LUE, 5\5 strength right lower extremity. 5/5 strength in left lower extremity. LABORATORY DATA: Please see below. ASSESSMENT:89-year-old F with past medical history of TIA/stoke who presents status post new stroke PLAN: 1. Rehab- PT/OT, advance mobility and ADLs, strengthen/stretch/maintain ROM all 4 limbs -LINING SCRUBBER for cog and swallow eval 2. 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 cardiac- Grade 2 diastolic CHF, c/u daily weights, and fluid restrict, will monitor for edema -HTN c/u lisinopril, will add hydralazine for sBP <140, CAD s/p CABG- beta patricia on hold due to bradycardia c/u ASA -HLD- c/u statin -medicine consulted to assist in overall management 4. Resp-monitor for infection 5. GI ppx- protonix 6. DVT ppx- Lovenox 7. Pain- tylenol prn 8. Dispo- tbd Allergies Coded Allergies: hydrocodone (Verified Allergy, Unknown, hallucinations , 11/04/20) meperidine (Verified Allergy, Unknown, anaphylaxis , 11/04/20) Vital Signs Vital Signs Date Time Temp Pulse Resp B/P (MAP) Pulse Ox O2 Delivery O2 Flow Rate FiO2 11/17/20 16:43 183/79 11/17/20 14:00 97.6 60 16 95 11/17/20 05:34 Room Air Current Medications Current Medications Current Medications Medications (Trade) Dose Ordered Sig/Malina Route PRN Reason Start Time Stop Time Status Last Admin Dose Admin Acetaminophen (Tylenol Tab) 650 mg Q4HP PRN PO fever/MILD PAIN (PS 1-4) 11/11/20 16:20 Aspirin (Ecotrin) 325 mg DAILY PO 11/12/20 09:00 11/17/20 09:48 Clopidogrel Bisulfate (PLAVix) 75 mg DAILY PO 11/12/20 09:00 11/17/20 09:48 Docusate Sodium (Colace) 100 mg BID PO 11/11/20 21:00 11/17/20 09:48 Enoxaparin Sodium (Lovenox) 40 mg DAILY@2100 SC 11/11/20 21:00 11/13/20 21:11 DC 11/12/20 21:15 Enoxaparin Sodium (Lovenox) 40 mg DAILY@2100 SC 11/13/20 21:00 11/16/20 20:35 Hydralazine HCl (Apresoline) 20 mg TID PO 11/11/20 21:00 11/17/20 16:43 Lactulose (Cephulac) 30 ml DAILY PO 11/12/20 09:00 11/17/20 09:50 Lisinopril (Prinivil) 10 mg DAILY PO 11/12/20 09:00 11/17/20 09:49 Pantoprazole Sodium (Protonix) 40 mg DAILY PO 11/12/20 09:00 11/17/20 09:48 Senna (Senokot) 1 tab QHS PO 11/11/20 21:00 11/16/20 20:35 Simvastatin (Zocor) 40 mg QHS PO 11/11/20 21:00 11/16/20 20:35 RICHIE BASS MD Nov 17, 2020 20:36
[2020-11-17] MEDS: ENOXAPARIN 40MG/0.4ML SYRINGE (J1650 PER 10MG) SC SCH (21:45)
[2020-11-17] MEDS: SENNA 8.6 MG TAB (SENOKOT) PO SCH (21:45)
[2020-11-17] MEDS: SIMVASTATIN 40 MG TAB PO SCH (21:45)
[2020-11-18 06:00] VITALS: BP 136/60
[2020-11-18 06:26] LABS: BASO # 0.1 10^3/uL (0.0-0.2); BASO % 1.1 % (0.0-1.0); EOS # 0.2 10^3/uL (0.0-0.5); EOS % 3.9 % (0.0-3.0); HEMATOCRIT 34.6 % (36.0-47.0); HEMOGLOBIN 11.1 g/dl (12.0-15.5); LYMPH # 1.2 10^3/uL (1.5-5.0); LYMPH % 21.8 % (24.0-44.0); MEAN CORPUSCULAR HEMOGLOBIN 29.1 pg (27.0-33.0); MEAN CORPUSCULAR HGB CONC 32.1 g/dl (32.0-36.5); MEAN CORPUSCULAR VOLUME 90.8 fl (80.0-96.0); MONO # 0.6 10^3/uL (0.0-0.8); MONO % 10.4 % (2.0-8.0); NEUTROPHILS # 3.4 10^3/uL (1.5-8.5); NEUTROPHILS % 61.2 % (36.0-66.0); PLATELET COUNT, AUTOMATED 206 10^3/uL (150-450); RED BLOOD COUNT 3.81 10^6/uL (4.00-5.40); WHITE BLOOD COUNT 5.6 10^3/uL (4.0-10.0)
[2020-11-18 06:56] LABS: BLOOD UREA NITROGEN 23 MG/DL (7-18); CALCIUM LEVEL 9.1 MG/DL (8.8-10.2); CARBON DIOXIDE LEVEL 26 MEQ/L (21-32); CHLORIDE LEVEL 110 MEQ/L (98-107); CREATININE FOR GFR 0.81 MG/DL (0.55-1.30); GLOMERULAR FILTRATION RATE > 60.0 (>32); GLUCOSE, FASTING 95 MG/DL (70-100); POTASSIUM SERUM 4.3 MEQ/L (3.5-5.1); SODIUM LEVEL 141 MEQ/L (136-145)
[2020-11-18] MEDS: CLOPIDOGREL 75 MG TAB PO SCH (09:07)
[2020-11-18] MEDS: PANTOPRAZOLE 40MG TAB (PROTONIX) PO SCH (09:07)
[2020-11-18] MEDS: LACTULOSE 20 GM/30 ML SYRUP UD PO SCH (09:07)
[2020-11-18] MEDS: DOCUSATE SODIUM 100MG CAPSULE PO SCH ×2 (09:07→20:29)
[2020-11-18] MEDS: REMEDY PHYTOPLEX Z-GUARD PASTE 113GM TUBE (FROM STOREROOM PRODUCT) TOP SCH ×3 (09:08→20:30)
[2020-11-18] MEDS: ASPIRIN ENTERIC 325 MG TAB PO SCH (09:08)
[2020-11-18] MEDS: **hydrALAZINE** 10 MG TAB PO SCH ×3 (09:09→20:30)
--- NOTE | 2020-11-18 09:41 | IPNPDOC ---
PM&R Progress Note DATE OF SERVICE: Nov 18, 2020 New Media Strategist Progress Note Subjective: Patient pleased she will be able to go home tomorrow and feels much stronger. REVIEW OF SYSTEMS: The following is a completed review of systems and has been reviewed. Review of systems otherwise unremarkable. PAIN: Patient self reports no pain EYES: decreased vision since stroke EARS, NOSE, & THROAT: No throat pain, or dysphagia, or rhinorrhea CARDIOVASCULAR: Denies chest pain or palpitations PULMONARY: Denies shortness of breath GASTROINTESTINAL: Denies constipation/diarrhea GENITOURINARY: denies dysuria MUSCULOSKELETAL: right sided weakness NEUROLOGICAL:right sided weakness HEMATOLOGICAL: denies easy bruising SKIN: intact PSYCHIATRIC: Unremarkable All other review of systems found to be negative. PHYSICAL EXAMINATION: VITAL SIGNS: Please see below. GENERAL: Pleasant and cooperative. No acute distress. left sided facial droop HEENT: PERRL. Extraocular movements intact. Clear conjunctiva CARDIOVASCULAR: Regular rate and rhythm. No murmurs, rubs, or gallops LUNGS: clear to auscultation bilaterally. No wheezes. No rhonchi ABDOMEN: Soft, nontender, nondistended. Positive bowel sounds. Normal active bowel sounds NEUROLOGICAL: Alert and oriented times three. Cranial nerves II through XII grossly intact. Sensation grossly intact EXTREMITIES: 4/5 RUE, 5/5 LUE, 5\5 strength right lower extremity. 5/5 strength in left lower extremity. LABORATORY DATA: Please see below. ASSESSMENT:89-year-old F with past medical history of TIA/stoke who presents status post new stroke PLAN: 1. 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 cardiac- Grade 2 diastolic CHF, c/u daily weights, and fluid restrict, will monitor for edema -HTN c/u lisinopril, c/u hydralazine for sBP >140, CAD s/p CABG- beta patricia on hold due to bradycardia c/u ASA -HLD- c/u statin -medicine consulted to assist in overall management 4. Resp-monitor for infection 5. GI ppx- protonix 6. DVT ppx- Lovenox 7. Pain- tylenol prn 8. Dispo- 11-19-20 with family support, progressing towards goals Allergies Coded Allergies: hydrocodone (Verified Allergy, Unknown, hallucinations , 11/04/20) meperidine (Verified Allergy, Unknown, anaphylaxis , 11/04/20) Vital Signs Vital Signs Date Time Temp Pulse Resp B/P (MAP) Pulse Ox O2 Delivery O2 Flow Rate FiO2 11/18/20 09:09 144/67 11/18/20 06:00 97.4 66 18 94 11/17/20 05:34 Room Air Laboratory Data CBC/BMP Laboratory Tests 11/18/20 06:11 Labs 24H Laboratory Tests 2 11/18/20 06:11: Immature Granulocyte % (Auto) 1.6, Neutrophils (%) (Auto) 61.2, Lymphocytes (%) (Auto) 21.8L, Monocytes (%) (Auto) 10.4H, Eosinophils (%) (Auto) 3.9H, Basophils (%) (Auto) 1.1H, Neutrophils # (Auto) 3.4, Lymphocytes # (Auto) 1.2L, Monocytes # (Auto) 0.6, Eosinophils # (Auto) 0.2, Basophils # (Auto) 0.1, Nucleated Red Blood Cells % (auto) 0.0, Anion Gap 5L, Glomerular Filtration Rate > 60.0, Calcium Level 9.1 Current Medications Current Medications Current Medications Medications (Trade) Dose Ordered Sig/Malina Route PRN Reason Start Time Stop Time Status Last Admin Dose Admin Acetaminophen (Tylenol Tab) 650 mg Q4HP PRN PO fever/MILD PAIN (PS 1-4) 11/11/20 16:20 Aspirin (Ecotrin) 325 mg DAILY PO 11/12/20 09:00 11/18/20 09:08 Clopidogrel Bisulfate (PLAVix) 75 mg DAILY PO 11/12/20 09:00 11/18/20 09:07 Docusate Sodium (Colace) 100 mg BID PO 11/11/20 21:00 11/18/20 09:07 Enoxaparin Sodium (Lovenox) 40 mg DAILY@2100 SC 11/11/20 21:00 11/13/20 21:11 DC 11/12/20 21:15 Enoxaparin Sodium (Lovenox) 40 mg DAILY@2100 SC 11/13/20 21:00 11/17/20 21:45 Hydralazine HCl (Apresoline) 20 mg TID PO 11/11/20 21:00 11/18/20 09:09 Lactulose (Cephulac) 30 ml DAILY PO 11/12/20 09:00 11/18/20 09:07 Lisinopril (Prinivil) 10 mg DAILY PO 11/12/20 09:00 11/18/20 09:09 Pantoprazole Sodium (Protonix) 40 mg DAILY PO 11/12/20 09:00 11/18/20 09:07 Senna (Senokot) 1 tab QHS PO 11/11/20 21:00 11/17/20 21:45 Simvastatin (Zocor) 40 mg QHS PO 11/11/20 21:00 11/17/20 21:45 RICHIE BASS MD Nov 18, 2020 09:41
[2020-11-18 14:00] VITALS: BP 178/74
--- NOTE | 2020-11-18 14:12 | IPNPDOC ---
Text Note Date of Service The patient was seen on 11/18/20. NOTE Patient was seen and examined. No overnight events. Participating in therapy w ell PHYSICAL EXAMINATION: GENERAL: AAOx3, resting in bedside chair, in good spirits HEENT: Pupils equal and reactive to light. Extraocular movements intact. Tongue protrudes midline. NECK: Supple. No carotid bruits. LUNGS: CTAB, no W/r/R HEART: S1S2 +, 1/6 systolic ejection murmur, S1S2 + no gallops ABDOMEN: Soft and nontender with no masses. EXTREMITIES: No clubbing or cyanosis. Trace peripheral edema. Pulses are full in all four extremities. NEURO: 5/5 in all extremities, no focal deficits. no sensory or motor deficits. CN 2-12 in tact. PSYCH: mood and affect appropriate. LABORATORY: Please see below IMAGING: Echocardiogram: EF 60% Study is of acceptable technical quality. Underlying sinus bradycardia with wide QRS complex. Normal LV size with normal LV systolic function and grade 2 diastolic dysfunction. Normal RV size. Severe biatrial enlargement. No significant valvular disease. Apparent atherosclerosis in abdominal aorta. Negative bubble study. Carotid US: 1. Absence of diastolic blood flow in the right common carotid artery. 2. The right carotid bulb is occluded or nearly occluded. Diminished blood flow velocity in the more distal portions of the cervical right ICA. 3. Diminished flow in the right external carotid artery. 4. Left ICA peak systolic velocity elevation consistent with 50-69% stenosis. 5. The visualized vertebral arteries demonstrate antegrade flow. MRI brain: Suspicious for a focal, acute infarct in the right medulla. 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 Guy) was consulted and thoroughly evaluated. She recommended c/w medical management with ASA, plavix and statin. She will need f/u in 6 months with vascular and repeat Carotid US at that time. Echo was done this admission . The bradycardia she was experiencing on admission and the several days prior was likely 2/2 to prior BB use which resolved . HR currently 60-77. This was discussed with cardiology, wished to continue to monitor. Not candidate for PM per Dr. Waddell. She had ambulatory dysfunction s/p CVA and PT recommended continued rehabilitation. On 11/11/20 she was discharged from acute inpatient and admitted to ARU for further treatment. 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 Guy): c/w medical management with ASA, plavix and statin. She will need f/u in 6 months with vascular and repeat Carotid US at that time. -Echo above -lipid panel wnl -PT/OT HTN -BP still slightly elevated today -Increased ACEi to lisinopril 10 mg PO daily -Monitor closely HLD -Statin DISPOSITION: As per primary VS,Trung, I+O VS, Trung, I+O Laboratory Tests 11/18/20 06:11 Vital Signs Date Time Temp Pulse Resp B/P (MAP) Pulse Ox O2 Delivery O2 Flow Rate FiO2 11/18/20 09:09 144/67 11/18/20 06:00 97.4 66 18 94 11/17/20 05:34 Room Air I&O- Last 24 Hours up to 6 AM 11/18/20 06:00 Intake Total 920 ml Balance 920 ml BRITTANIE DE LA GARZA MD Nov 18, 2020 14:12
[2020-11-18 15:56] VITALS: BP 157/71
[2020-11-18 20:00] VITALS: BP 158/68
[2020-11-18] MEDS: SIMVASTATIN 40 MG TAB PO SCH (20:29)
[2020-11-18] MEDS: ENOXAPARIN 40MG/0.4ML SYRINGE (J1650 PER 10MG) SC SCH (20:29)
[2020-11-18] MEDS: SENNA 8.6 MG TAB (SENOKOT) PO SCH (20:29)
[2020-11-18] MEDS ORDERED: LIDOCAINE 5% (LIDODERM) PATCH TD SCH (21:00)
[2020-11-19 05:26] VITALS: BP 157/71
[2020-11-19] MEDS: DOCUSATE SODIUM 100MG CAPSULE PO SCH (08:40)
[2020-11-19] MEDS: ASPIRIN ENTERIC 325 MG TAB PO SCH (08:40)
[2020-11-19] MEDS: LACTULOSE 20 GM/30 ML SYRUP UD PO SCH (08:40)
[2020-11-19] MEDS: CLOPIDOGREL 75 MG TAB PO SCH (08:40)
[2020-11-19] MEDS: PANTOPRAZOLE 40MG TAB (PROTONIX) PO SCH (08:40)
[2020-11-19 08:41] VITALS: BP 157/71
[2020-11-19] MEDS: REMEDY PHYTOPLEX Z-GUARD PASTE 113GM TUBE (FROM STOREROOM PRODUCT) TOP SCH (08:41)
[2020-11-19] MEDS: **hydrALAZINE** 10 MG TAB PO SCH (08:41)
[2020-11-19] MEDS ORDERED: **NOTE PATIENT COMMENT** MISC XX SCH (09:00)
[2020-11-19] MEDS ORDERED: ASPI32ECTA PO (11:16)
[2020-11-19] MEDS ORDERED: LISI10TA22 PO (11:16)
[2020-11-19] MEDS ORDERED: SIMV40TA20 PO (11:16)
[2020-11-19] MEDS ORDERED: CLOP75TA2 PO (11:16)
[2020-11-19] MEDS ORDERED: HYDR10TAB PO (11:17)
--- NOTE | 2020-11-19 12:47 | IPNPDOC ---
Text Note Date of Service The patient was seen on 11/19/20. NOTE Patient was seen and examined. Participating in therapy well PHYSICAL EXAMINATION: GENERAL: AAOx3, resting in bedside chair, in good spirits HEENT: Pupils equal and reactive to light. Extraocular movements intact. Tongue protrudes midline. NECK: Supple. No carotid bruits. LUNGS: CTAB, no W/r/R HEART: S1S2 +, 1/6 systolic ejection murmur, S1S2 + no gallops ABDOMEN: Soft and nontender with no masses. EXTREMITIES: No clubbing or cyanosis. Trace peripheral edema. Pulses are full in all four extremities. NEURO: 5/5 in all extremities, no focal deficits. no sensory or motor deficits. CN 2-12 in tact. PSYCH: mood and affect appropriate. LABORATORY: Please see below IMAGING: Echocardiogram: EF 60% Study is of acceptable technical quality. Underlying sinus bradycardia with wide QRS complex. Normal LV size with normal LV systolic function and grade 2 diastolic dysfunction. Normal RV size. Severe biatrial enlargement. No significant valvular disease. Apparent atherosclerosis in abdominal aorta. Negative bubble study. Carotid US: 1. Absence of diastolic blood flow in the right common carotid artery. 2. The right carotid bulb is occluded or nearly occluded. Diminished blood flow velocity in the more distal portions of the cervical right ICA. 3. Diminished flow in the right external carotid artery. 4. Left ICA peak systolic velocity elevation consistent with 50-69% stenosis. 5. The visualized vertebral arteries demonstrate antegrade flow. MRI brain: Suspicious for a focal, acute infarct in the right medulla. 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 Guy) was consulted and thoroughly evaluated. She recommended c/w medical management with ASA, plavix and statin. She will need f/u in 6 months with vascular and repeat Carotid US at that time. Echo was done this admission . The bradycardia she was experiencing on admission and the several days prior was likely 2/2 to prior BB use which resolved . HR currently 60-77. This was discussed with cardiology, wished to continue to monitor. Not candidate for PM per Dr. Waddell. She had ambulatory dysfunction s/p CVA and PT recommended continued rehabilitation. On 11/11/20 she was discharged from acute inpatient and admitted to ARU for further treatment. 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 Vascular surgery (Dr. Guy): c/w medical management with ASA, plavix and statin. She will need f/u in 6 months with vascular and repeat Carotid US at that time. Echo above. PT/OT 2)HTN. BP still slightly elevated today . lisinopril 10 mg PO daily . Monitor closely 3)HLD. Statin DISPOSITION: As per primary VS,Fishbone, I+O VS, Fishbone, I+O Vital Signs Date Time Temp Pulse Resp B/P (MAP) Pulse Ox O2 Delivery O2 Flow Rate FiO2 11/19/20 08:41 157/71 11/19/20 05:26 99.2 62 16 95 Room Air I&O- Last 24 Hours up to 6 AM 11/19/20 06:00 Intake Total 580 ml Balance 580 ml BRITTANIE DE LA GARZA MD Nov 19, 2020 12:47
[2020-11-19 14:00] VITALS: BP 140/67
== END 2020-11-19 14:55 | disposition home health service (06) | DRG 57 ==
LOC: M PM&R 14:57
PROVIDERS: ADMIT Physical Medicine & Rehabilitation; ATTEND Physical Medicine & Rehabilitation
DX: I69.351 Hemiplegia and hemiparesis following cerebral infarction affecting right dominant side (principal); I50.32 Chronic diastolic (congestive) heart failure; I69.392 Facial weakness following cerebral infarction; I11.0 Hypertensive heart disease with heart failure; E78.5 Hyperlipidemia, unspecified; D50.9 Iron deficiency anemia, unspecified; E55.9 Vitamin D deficiency, unspecified; I25.10 Atherosclerotic heart disease of native coronary artery without angina pectoris; I65.21 Occlusion and stenosis of right carotid artery; Z66 Do not resuscitate; Z74.09 Other reduced mobility; Z74.1 Need for assistance with personal care; Z79.82 Long term (current) use of aspirin; Z79.02 Long term (current) use of antithrombotics/antiplatelets; Z79.899 Other long term (current) drug therapy; Z88.5 Allergy status to narcotic agent; Z88.8 Allergy status to other drugs, medicaments and biological substances; Z85.038 Personal history of other malignant neoplasm of large intestine; Z90.49 Acquired absence of other specified parts of digestive tract; Z95.1 Presence of aortocoronary bypass graft